=== PATIENT | male | born 1985 | race Caucasian/White ===

== ENCOUNTER 2017-02-19 11:39 | Emergency (ER) | payer SELFPAY ==
[~2017-02-19] VITALS: Ht 188 cm; Wt 80.0 kg
[2017-02-19 11:46] VITALS: BP 149/95; PULSE 109; RESP 24; TEMP 98.4; O2SAT 96
[2017-02-19] MEDS ORDERED: SODIUM CHLOR 0.9% 1000 ML INJ 1,000 ML IV ONE (11:54)
[2017-02-19] MEDS ORDERED: SODIUM CHLORIDE 0.9% FLUSH 10 ML FLUSH IVF PRN (12:00)
[2017-02-19] MEDS ORDERED: LORazepam 2 MG/ML VIAL IVS ONE (12:00)
[2017-02-19 12:18] VITALS: RESP 21; O2SAT 96
[2017-02-19 12:32] LABS: AUTOMATED NEUTROPHIL # 3.7 TH/MM3 (1.8-7.7); BASOPHIL # 0.1 TH/MM3 (0-0.2); BASOPHIL % 1.2 % (0.0-2.0); EOSINOPHIL # 0.1 TH/MM3 (0-0.4); EOSINOPHIL % 1.8 % (0.0-4.0); HEMATOCRIT 41.9 % (39.0-51.0); HEMO FLAGS DIFF FINAL; LYMPH % 23.8 % (9.0-44.0); LYMPHOCYTE # 1.4 TH/MM3 (1.0-4.8); MEAN CELL VOLUME 95.2 FL (80.0-100.0); MEAN CORPUSCULAR HEMOGLOBIN 32.3 PG (27.0-34.0); MEAN CORPUSCULAR HGB CONC 33.9 % (32.0-36.0); NEUT % 64.2 % (16.0-70.0); PLATELET COUNT 150 TH/MM3 (150-450); RED CELL DISTRIBUTION WIDTH 13.7 % (11.6-17.2); WHITE BLOOD COUNT 5.8 TH/MM3 (4.0-11.0)
[2017-02-19 12:46] LABS: ALKALINE PHOSPHATASE 60 U/L (45-117); TOTAL BILIRUBIN ADULT 0.7 MG/DL (0.2-1.0)
[2017-02-19] MEDS ORDERED: chlordiazePOXIDE 25 MG CAP PO STA (12:47)
[2017-02-19 12:48] LABS: ALT (GPT) 174 U/L (12-78); ANION GAP 15 MEQ/L (5-15); AST (GOT) 270 U/L (15-37); BLOOD UREA NITROGEN 5 MG/DL (7-18); CHLORIDE 101 MEQ/L (98-107); GLOMERULAR FILTRATION RATE 84 ML/MIN (>89); POTASSIUM 3.8 MEQ/L (3.5-5.1); SODIUM (NA) 137 MEQ/L (136-145)
[2017-02-19] MEDS ORDERED: CHLO25CA2 PO (12:56)
--- NOTE | 2017-02-19 12:56 | PD ---
HPI Chief Complaint: Seizure Time Seen by Provider: 11:46 Travel History International Travel<30 days: No Contact w/Intl Traveler<30days: No Traveled to known affect area: No History of Present Illness HPI Is a 31-year-old man who presents to the emergency department complaining of episode of seizure today. He said 2 previous seizures before. He said daily alcohol drinker. States she's been cut back over the past couple weeks. Last drank this morning. Bystanders describe generalized tonic-clonic seizures. EMS describes that he was postictal on scene initially. Denies any other recent illness or injury. No other complaints. History Past Medical History Narrative Medical Daily alcohol use Seizures Social History Alcohol Use: Yes (10-12 BEERS DAILY ) Tobacco Use: No Allergies-Medications (Allergen,Severity, Reaction): Coded Allergies: No Known Allergies (Unverified , 02/19/17) Reported Meds & Prescriptions Reported Meds & Active Scripts Active No Active Prescriptions or Reported Medications Review of Systems Except as stated in HPI: all other systems reviewed are Neg Physical Exam Narrative GENERAL: 31-year-old man, little bit tremulous, nontoxic appearing. SKIN: Focused skin assessment warm/dry. HEAD: Atraumatic. Normocephalic. CARDIOVASCULAR: Heart rates over rapid. No murmurs. RESPIRATORY: No accessory muscle use. Clear to auscultation. Breath sounds equal bilaterally. GASTROINTESTINAL: Abdomen soft, non-tender, nondistended. Hepatic and splenic margins not palpable. MUSCULOSKELETAL: No obvious deformities. No clubbing. No cyanosis. No edema. NEUROLOGICAL: Awake and alert. No obvious cranial nerve deficits. Motor grossly within normal limits. Normal speech. PSYCHIATRIC: Appropriate mood and affect; insight and judgment normal. Data Data Last Documented VS Vital Signs Date Time Temp Pulse Resp B/P Pulse Ox O2 Delivery O2 Flow Rate FiO2 02/19/17 12:18 21 96 Room Air 02/19/17 11:46 98.4 109 149/95 Orders Complete Blood Count With Diff (02/19/17 11:54) Alcohol (Ethanol) (02/19/17 11:54) Blood Glucose (02/19/17 11:54) Ecg Monitoring (02/19/17 11:54) Iv Access Insert/Monitor (02/19/17 11:54) Oximetry (02/19/17 11:54) Comprehensive Metabolic Panel (02/19/17 11:54) Sodium Chlor 0.9% 1000 Ml Inj (Ns 1000 M (02/19/17 11:54) Sodium Chloride 0.9% Flush (Ns Flush) (02/19/17 12:00) Lorazepam Inj (Ativan Inj) (02/19/17 12:00) Chlordiazepoxide (Librium) (02/19/17 12:47) Labs Laboratory Tests Test 02/19/17 11:50 White Blood Count 5.8 TH/MM3 Red Blood Count 4.40 MIL/MM3 Hemoglobin 14.2 GM/DL Hematocrit 41.9 % Mean Corpuscular Volume 95.2 FL Mean Corpuscular Hemoglobin 32.3 PG Mean Corpuscular Hemoglobin 33.9 % Concent Red Cell Distribution Width 13.7 % Platelet Count 150 TH/MM3 Mean Platelet Volume 8.8 FL Neutrophils (%) (Auto) 64.2 % Lymphocytes (%) (Auto) 23.8 % Monocytes (%) (Auto) 9.0 % Eosinophils (%) (Auto) 1.8 % Basophils (%) (Auto) 1.2 % Neutrophils # (Auto) 3.7 TH/MM3 Lymphocytes # (Auto) 1.4 TH/MM3 Monocytes # (Auto) 0.5 TH/MM3 Eosinophils # (Auto) 0.1 TH/MM3 Basophils # (Auto) 0.1 TH/MM3 CBC Comment DIFF FINAL Differential Comment Sodium Level 137 MEQ/L Potassium Level 3.8 MEQ/L Chloride Level 101 MEQ/L Carbon Dioxide Level 21.0 MEQ/L Anion Gap 15 MEQ/L Blood Urea Nitrogen 5 MG/DL Creatinine 1.03 MG/DL Estimat Glomerular Filtration 84 ML/MIN Rate Random Glucose 214 MG/DL Calcium Level 8.6 MG/DL Total Bilirubin 0.7 MG/DL Aspartate Amino Transf 270 U/L (AST/SGOT) Alanine Aminotransferase 174 U/L (ALT/SGPT) Alkaline Phosphatase 60 U/L Total Protein 7.9 GM/DL Albumin 4.4 GM/DL Ethyl Alcohol Level 18 MG/DL [facility] Medical Decision Making Medical Screen Exam Complete: Yes Emergency Medical Condition: Yes Interpretation(s) LABS: CBC unremarkable. CMP is unremarkable. AST and ALT are little bit elevated. Alcohol 18 Differential Diagnosis Seizure, electrolyte abnormality, alcohol withdrawal, other Narrative Course Medical decision making 31-year-old man presents to the emergency department complaining of what appears to be an alcohol withdrawal seizure. History of the same. He's had imaging of his head for the past year that been normal. His mom is here with them. I asked him specifically about desire to quit, he does not desire to quit drinking at this time. We'll recommend Librium here for withdrawal prevention, outpatient follow-up if he desires to quit drinking. Diagnosis Primary Impression: Alcohol abuse Additional Impressions: Seizure Alcohol withdrawal Qualified Code: F10.230 - Alcohol withdrawal, uncomplicated Additional Instructions: Take Librium as prescribed as needed for withdrawal symptoms. Do not drink alcohol when taking Librium. Return to the emergency department for any recurrent seizures, or worsening withdrawal symptoms. Med/Other Pt SpecificInfo: Prescription(s) given Scripts Chlordiazepoxide 25 Mg Cap25 Mg PO TID PRN (WITHDRAWAL) #6 CAP Ref 0 Prov:Michael Escobedo MD 02/19/17 Disposition: 01 DISCHARGE HOME Condition: Stable Michael Escobedo MD February 19, 2017 12:56
[2017-02-19 13:00] VITALS: BP 166/107; PULSE 98; RESP 22; O2SAT 99
== END 2017-02-19 13:56 | disposition home or self-care (01) ==
LOC: NEPE 11:39
DX: R56.9 Unspecified convulsions (principal); F10.230 Alcohol dependence with withdrawal, uncomplicated
CPT/HCPCS: 80053; 80307; 85025; 96361; 96374; 99284; J2060; J7030

== ENCOUNTER 2017-06-04 11:15 | Emergency (ER) | payer SELFPAY ==
[~2017-06-04] VITALS: Ht 188 cm; Wt 77.3 kg
[~2017-06-04 11:15] MED LIST: CHLO25CA2 PO
[2017-06-04 11:19] VITALS: BP 164/94; PULSE 122; RESP 18; TEMP 98.9; O2SAT 98
[2017-06-04] MEDS ORDERED: [UNRECOGNIZED DRUG - OTHER] (11:19)
[2017-06-04] MEDS ORDERED: MULTTAB4 (11:19)
[2017-06-04] MEDS ORDERED: SODIUM CHLOR 0.9% 1000 ML INJ 1,000 ML IV ONE ×2 (11:41→12:45)
[2017-06-04] MEDS ORDERED: THIAMINE INJ 100 MG in SODIUM CHLORIDE 0.9% INJ 100 ML IV ONE (11:45)
[2017-06-04] MEDS ORDERED: LORazepam 2 MG/ML VIAL IVS ONE (11:45)
[2017-06-04] MEDS ORDERED: SODIUM CHLORIDE 0.9% FLUSH 10 ML FLUSH IVF PRN (11:45)
--- NOTE | 2017-06-04 11:48 | PD ---
HPI Chief Complaint: Seizure Time Seen by Provider: 11:35 Travel History International Travel<30 days: No Contact w/Intl Traveler<30days: No Traveled to known affect area: No History of Present Illness HPI Patient is a 31-year-old male who arrives emergency room after he was found on the floor by his mother after having a possible seizure episode. As per patient , he has history of alcohol withdrawal seizures, reports that he is an alcoholic and drinks about 4-5 shots of "very strong" alcohol per day. Patient reports that he remembers drinking 2 shots of "99" this morning and then woke up on the floor with his mom at his side. Patient reports that he feels a little "shaky" at this time from withdrawal symptoms, denies any headache or dizziness, denies any abdominal pain, denies any nausea or vomiting, denies chest pain or shortness of breath. Patient denies suicidal or homicidal ideations. PFSH Past Medical History Anxiety: Yes Depression: Yes High Cholesterol: Yes Diminished Hearing: No Hepatitis: Yes (HEP A) Hypertension: Yes (DOES NOT TAKE MEDS) Musculoskeletal: No Neurologic: No Immunizations Current: Yes Seizures: Yes (DOES NOT TAKE MEDS) Influenza Vaccination: No ?: Not Social History Alcohol Use: Yes (4-5 shots/day) Tobacco Use: No Substance Use: No Allergies-Medications (Allergen,Severity, Reaction): Coded Allergies: No Known Allergies (Unverified , 02/19/17) Reported Meds & Prescriptions Reported Meds & Active Scripts Active Chlordiazepoxide HCl 25 Mg Capsule 25 Mg PO TID PRN Reported Multi Vitamin Mens (Multiple Vitamin) 1 Tab Tab [potassium vit] Review of Systems General / Constitutional: No: Fever Eyes: No: Visual changes HENT: No: Headaches Cardiovascular: No: Chest Pain or Discomfort Respiratory: No: Shortness of Breath Gastrointestinal: No: Abdominal Pain Genitourinary: No: Dysuria Musculoskeletal: No: Pain Skin: No Rash Neurologic: Positive: Seizures, No: Weakness Psychiatric: Positive: Substance Abuse (alcohol abuse), No: Depression Endocrine: No: Polydipsia Hematologic/Lymphatic: No: Easy Bruising Physical Exam Narrative GENERAL: mild distress, patient tremulous on exam SKIN: Focused skin assessment warm/dry. HEAD: Atraumatic. Normocephalic. EYES: Pupils equal and round. No scleral icterus. No injection or drainage. ENT: No nasal bleeding or discharge. Mucous membranes pink and moist. NECK: Trachea midline. No JVD. CARDIOVASCULAR: Tachycardic. No murmur appreciated. RESPIRATORY: No accessory muscle use. Clear to auscultation. Breath sounds equal bilaterally. GASTROINTESTINAL: Abdomen soft, non-tender, nondistended. Hepatic and splenic margins not palpable. MUSCULOSKELETAL: No obvious deformities. No clubbing. No cyanosis. No edema. NEUROLOGICAL: Awake and alert. No obvious cranial nerve deficits. Motor grossly within normal limits. Normal speech. PSYCHIATRIC: Appropriate mood and affect; insight and judgment normal. Data Data Last Documented VS Vital Signs Date Time Temp Pulse Resp B/P Pulse Ox O2 Delivery O2 Flow Rate FiO2 06/04/17 14:58 110 18 152/104 98 06/04/17 11:19 98.9 Orders Complete Blood Count With Diff (06/04/17 11:41) Alcohol (Ethanol) (06/04/17 11:41) Electrocardiogram (06/04/17 ) Ct Brain W/O Iv Contrast(Rout) (06/04/17 ) Ecg Monitoring (06/04/17 11:41) Iv Access Insert/Monitor (06/04/17 11:41) Oximetry (06/04/17 11:41) Comprehensive Metabolic Panel (06/04/17 11:41) Sodium Chlor 0.9% 1000 Ml Inj (Ns 1000 M (06/04/17 11:41) Sodium Chloride 0.9% Flush (Ns Flush) (06/04/17 11:45) Lorazepam Inj (Ativan Inj) (06/04/17 11:45) Thiamine Inj (Thiamine Inj) (06/04/17 11:45) Ua Includes Microscopic (06/04/17 11:41) Chest, Single Ap (06/04/17 11:45) Potassium Chloride (Kcl) (06/04/17 12:45) Us Abdomen Gallbladder (06/04/17 ) Sodium Chlor 0.9% 1000 Ml Inj (Ns 1000 M (06/04/17 12:45) Lorazepam Inj (Ativan Inj) (06/04/17 13:30) Chlordiazepoxide (Librium) (06/04/17 15:30) Labs Laboratory Tests Test 06/04/17 11:50 White Blood Count 5.4 TH/MM3 Red Blood Count 3.53 MIL/MM3 Hemoglobin 11.6 GM/DL Hematocrit 33.7 % Mean Corpuscular Volume 95.6 FL Mean Corpuscular Hemoglobin 32.9 PG Mean Corpuscular Hemoglobin 34.4 % Concent Red Cell Distribution Width 15.7 % Platelet Count 172 TH/MM3 Mean Platelet Volume 8.6 FL Neutrophils (%) (Auto) 89.1 % Lymphocytes (%) (Auto) 5.3 % Monocytes (%) (Auto) 5.3 % Eosinophils (%) (Auto) 0.1 % Basophils (%) (Auto) 0.2 % Neutrophils # (Auto) 4.8 TH/MM3 Lymphocytes # (Auto) 0.3 TH/MM3 Monocytes # (Auto) 0.3 TH/MM3 Eosinophils # (Auto) 0.0 TH/MM3 Basophils # (Auto) 0.0 TH/MM3 CBC Comment DIFF FINAL Differential Comment Urine Collection Type CLEAN CATCH Urine Color JOSH Urine Turbidity CLEAR Urine pH 6.5 Urine Specific [place] 1.020 Urine Protein 30 mg/dL Urine Glucose (UA) 100 mg/dL Urine Ketones 15 mg/dL Urine Occult Blood TRACE Urine Nitrite POS Urine Bilirubin MOD Urine Leukocyte Esterase NEG Urine RBC 4-9 /hpf Urine WBC 0-2 /hpf Urine Squamous Epithelial 6-8 /hpf Cells Urine Hyaline Casts 20-24 /lpf Urine Collection Time 11:50 Sodium Level 134 MEQ/L Potassium Level 3.0 MEQ/L Chloride Level 96 MEQ/L Carbon Dioxide Level 22.5 MEQ/L Anion Gap 16 MEQ/L Blood Urea Nitrogen 6 MG/DL Creatinine 1.20 MG/DL Estimat Glomerular Filtration 70 ML/MIN Rate Random Glucose 241 MG/DL Calcium Level 8.4 MG/DL Total Bilirubin 3.2 MG/DL Aspartate Amino Transf 360 U/L (AST/SGOT) Alanine Aminotransferase 195 U/L (ALT/SGPT) Alkaline Phosphatase 246 U/L Total Protein 7.4 GM/DL Albumin 3.6 GM/DL Ethyl Alcohol Level LESS THAN 3 MG/DL MDM Medical Decision Making Medical Screen Exam Complete: Yes Emergency Medical Condition: Yes Interpretation(s) EKG at 1209: Sinus tachycardia at 116bpm, qt/qtc: 353/422, non specific st and t wave changes Vital Signs Date Time Temp Pulse Resp B/P Pulse Ox O2 Delivery O2 Flow Rate FiO2 06/04/17 11:19 98.9 122 18 164/94 98 Differential Diagnosis Differential includes alcohol abuse, alcohol withdrawal seizures, electrolyte abnormality, intracranial hemorrhage, dehydration Narrative Course Patient is a 31-year-old male who presents to emergency room with complaints of alcohol withdrawal seizures. Patient was found on the floor in his bedroom by his mother this morning, Reports that he may have had a seizure this morning. Patient does admit to drinking 2 shots of alcohol this morning, reports that he think he is in withdrawal this time. Patient is tachycardic on exam, he is tremulous, patient with most likely alcohol withdrawal symptoms. Plan to obtain CT of the head as he did fall supposedly out of his bed this morning - will rule out intracranial hemorrhage. Will obtain lab work including alcohol level. Will give IVF and ativan for withdrawal symptoms. Seizure precautions initiated, will monitor on cloth tester quality. Vital Signs Date Time Temp Pulse Resp B/P Pulse Ox O2 Delivery O2 Flow Rate FiO2 06/04/17 12:17 112 16 160/91 100 06/04/17 12:17 100 06/04/17 11:19 98.9 122 18 164/94 98 Laboratory Tests Test 06/04/17 11:50 White Blood Count 5.4 TH/MM3 (4.0-11.0) Red Blood Count 3.53 MIL/MM3 (4.50-5.90) Hemoglobin 11.6 GM/DL (13.0-17.0) Hematocrit 33.7 % (39.0-51.0) Mean Corpuscular Volume 95.6 FL (80.0-100.0) Mean Corpuscular Hemoglobin 32.9 PG (27.0-34.0) Mean Corpuscular Hemoglobin 34.4 % Concent (32.0-36.0) Red Cell Distribution Width 15.7 % (11.6-17.2) Platelet Count 172 TH/MM3 (150-450) Mean Platelet Volume 8.6 FL (7.0-11.0) Neutrophils (%) (Auto) 89.1 % (16.0-70.0) Lymphocytes (%) (Auto) 5.3 % (9.0-44.0) Monocytes (%) (Auto) 5.3 % (0.0-8.0) Eosinophils (%) (Auto) 0.1 % (0.0-4.0) Basophils (%) (Auto) 0.2 % (0.0-2.0) Neutrophils # (Auto) 4.8 TH/MM3 (1.8-7.7) Lymphocytes # (Auto) 0.3 TH/MM3 (1.0-4.8) Monocytes # (Auto) 0.3 TH/MM3 (0-0.9) Eosinophils # (Auto) 0.0 TH/MM3 (0-0.4) Basophils # (Auto) 0.0 TH/MM3 (0-0.2) CBC Comment DIFF FINAL Differential Comment Urine Collection Type CLEAN CATCH Urine Color JOSH (YELLW/STRAW) Urine Turbidity CLEAR (CLEAR) Urine pH 6.5 (5.0-8.5) Urine Specific [place] 1.020 (1.002-1.035) Urine Protein 30 mg/dL (NEG-TRACE) Urine Glucose (UA) 100 mg/dL (NEG) Urine Ketones 15 mg/dL (NEG) Urine Occult Blood TRACE (NEG) Urine Nitrite POS (NEG) Urine Bilirubin MOD (NEG) Urine Leukocyte Esterase NEG (NEG) Urine RBC 4-9 /hpf (0-3) Urine WBC 0-2 /hpf (0-5) Urine Squamous Epithelial 6-8 /hpf (0-5) Cells Urine Hyaline Casts 20-24 /lpf (RARE) Urine Collection Time 11:50 Sodium Level 134 MEQ/L (136-145) Potassium Level 3.0 MEQ/L (3.5-5.1) Chloride Level 96 MEQ/L (98-107) Carbon Dioxide Level 22.5 MEQ/L (21.0-32.0) Anion Gap 16 MEQ/L (5-15) Blood Urea Nitrogen 6 MG/DL (7-18) Creatinine 1.20 MG/DL (0.60-1.30) Estimat Glomerular Filtration 70 ML/MIN (>89) Rate Random Glucose 241 MG/DL (74-106) Calcium Level 8.4 MG/DL (8.5-10.1) Total Bilirubin 3.2 MG/DL (0.2-1.0) Aspartate Amino Transf 360 U/L (15-37) (AST/SGOT) Alanine Aminotransferase 195 U/L (12-78) (ALT/SGPT) Alkaline Phosphatase 246 U/L (45-117) Total Protein 7.4 GM/DL (6.4-8.2) Albumin 3.6 GM/DL (3.4-5.0) Ethyl Alcohol Level LESS THAN 3 MG/DL (0-5) Patient with transaminitis (AST 360, ALT: 195), baseline AST: 270 ALT: 174, moderate bili in urine tbili elevated at 3.2 - baseline around 1.1, will order RUQ US Last Impressions Chest X-Ray 06/04/17 1145 Signed Impressions: Service Date/Time: Sunday, June 04, 2017 12:05 - CONCLUSION: No acute disease. Cory James MD Head CT 06/04/17 0000 Signed Impressions: Service Date/Time: Sunday, June 04, 2017 11:55 - CONCLUSION: 1. No acute intracranial abnormality is identified. Marc Tanner MD RUQ: sludge in gallbladder with no gallbladder wall thickening or pericholecystic fluid seen Patient with no absolutely no abdominal pain at this time or during his ER visit , abdomen is soft, nontender, nondistended, no peritoneal signs. Patient understands importance of alcohol cessation as he will end up with liver failure. Patient was given a copy of his lab work as well as ultrasound report. Understands needs to follow-up with radiation protection technician and bring his studies with him to his appointment. Patient will return to emergency was needed. Studies also reviewed with patients mother who is at bedside. Diagnosis Primary Impression: Alcohol withdrawal Qualified Code: F10.230 - Alcohol withdrawal syndrome without complication Additional Impressions: Fall Qualified Code: W19.XXXA - Fall, initial encounter Seizure Alcohol abuse EtOH dependence Qualified Code: F10.239 - Alcohol dependence with withdrawal with complication Transaminitis Hypokalemia Referrals: Pretty Danielson MD Patient Instructions: General Instructions Additional Instructions: Please provide patient with a copy of his lab work and studies at discharge Please drink alcohol responsibility Please follow-up with your primary care doctor Return to emergency room as worsen or progress Return to the emergency room as needed Please follow up with radiation protection technician as outpatient as soon as possible, please bring the copy of your lab work and ultrasound to your appointment Scripts Chlordiazepoxide HCl 25 Mg [id number] Mg PO TID PRN (WITHDRAWAL) #6 Prov:Anitha Ball DO 06/04/17 Disposition: 01 DISCHARGE HOME Condition: Stable Anitha Ball DO Jun 04, 2017 11:47
[2017-06-04 12:01] LABS: AUTOMATED NEUTROPHIL # 4.8 TH/MM3 (1.8-7.7); BASOPHIL % 0.2 % (0.0-2.0); EOSINOPHIL % 0.1 % (0.0-4.0); HEMATOCRIT 33.7 % (39.0-51.0); HEMO FLAGS DIFF FINAL; LYMPH % 5.3 % (9.0-44.0); LYMPHOCYTE # 0.3 TH/MM3 (1.0-4.8); MEAN CELL VOLUME 95.6 FL (80.0-100.0); MEAN CORPUSCULAR HEMOGLOBIN 32.9 PG (27.0-34.0); MEAN CORPUSCULAR HGB CONC 34.4 % (32.0-36.0); MONO % 5.3 % (0.0-8.0); NEUT % 89.1 % (16.0-70.0); PLATELET COUNT 172 TH/MM3 (150-450); RED BLOOD COUNT 3.53 MIL/MM3 (4.50-5.90); RED CELL DISTRIBUTION WIDTH 15.7 % (11.6-17.2); WHITE BLOOD COUNT 5.4 TH/MM3 (4.0-11.0)
[2017-06-04 12:05] LABS: BLOOD, URINE TRACE (NEG); GLUCOSE,URINE 100 mg/dL (NEG); KETONE, URINE 15 mg/dL (NEG); PH, URINE 6.5 (5.0-8.5)
[2017-06-04 12:14] LABS: METHOD OF COLLECTION CLEAN CATCH; NITRITE,URINE POS (NEG)
[2017-06-04 12:15] LABS: URINE COLOR AMBER (YELLW/STRAW)
[2017-06-04] MEDS ORDERED: CHLO25CA9 PO (12:15)
[2017-06-04 12:16] LABS: WBC, URINE 0-2 /hpf (0-5)
[2017-06-04 12:17] VITALS: BP 160/91; PULSE 112; RESP 16; O2SAT 100
[2017-06-04 12:21] LABS: CHLORIDE 96 MEQ/L (98-107); SODIUM (NA) 134 MEQ/L (136-145)
[2017-06-04 12:24] LABS: ANION GAP 16 MEQ/L (5-15); BICARBONATE 22.5 MEQ/L (21.0-32.0)
[2017-06-04 12:25] LABS: BLOOD UREA NITROGEN 6 MG/DL (7-18)
[2017-06-04 12:27] LABS: ALT (GPT) 195 U/L (12-78); AST (GOT) 360 U/L (15-37)
[2017-06-04 12:28] LABS: GLOMERULAR FILTRATION RATE 70 ML/MIN (>89)
[2017-06-04 12:29] LABS: ALCOHOL LESS THAN 3 MG/DL (0-5); TOTAL BILIRUBIN ADULT 3.2 MG/DL (0.2-1.0)
[2017-06-04 12:30] LABS: ALKALINE PHOSPHATASE 246 U/L (45-117)
[2017-06-04] MEDS ORDERED: POTASSIUM CHLORIDE 10 MEQ CONTROLLED RELEASE TAB PO ONE (12:45)
[2017-06-04] MEDS ORDERED: LORazepam 2 MG/ML VIAL IV PUSH ONE (13:30)
--- NOTE | 2017-06-04 13:53 | RADRPT ---
EXAM DATE/TIME: 06/04/2017 11:55 [facility] COMPARISON: CT BRAIN W/O CONTRAST, September 01, 2016, 0:46. INDICATIONS : Seizure. RADIATION DOSE: 61.70 CTDIvol (mGy) MEDICAL HISTORY : Seizures. Hypertension. SURGICAL HISTORY : None. ENCOUNTER: Initial ACUITY: 1 day PAIN SCALE: 0/10 LOCATION: cranial TECHNIQUE: Multiple contiguous axial images were obtained of the head. Using automated exposure control and adj ustment of the mA and/or kV according to patient size, radiation dose was kept as low as reasonably a chievable to obtain optimal diagnostic quality images. DICOM format image data is available electro nically for review and comparison. FINDINGS: CEREBRUM: The ventricles are normal for age. No evidence of midline shift, mass lesion, hemorrhage or acute in farction. No extra-axial fluid collections are seen. POSTERIOR FOSSA: The cerebellum and brainstem are intact. The 4th ventricle is midline. The cerebellopontine angle i s unremarkable. EXTRACRANIAL: The visualized portion of the orbits is intact. SKULL: The calvaria is intact. No evidence of skull fracture. CONCLUSION: 1. No acute intracranial abnormality is identified. Marc Tanner MD on June 04, 2017 at 13:48 Board Certified Radiologist. This report was verified electronically.
--- NOTE | 2017-06-04 13:59 | RADRPT ---
EXAM DATE/TIME: 06/04/2017 12:05 [facility] COMPARISON: CHEST SINGLE AP, May 21, 2014, 9:40. INDICATIONS : Post possible seizure. Syncopal episode. MEDICAL HISTORY : Hypercholesterolemia. Hepatitis A. Hypertension. Seizures. SURGICAL HISTORY : None. ENCOUNTER: Initial ACUITY: 1 day PAIN SCORE: 0/10 LOCATION: chest FINDINGS: A single view of the chest demonstrates the lungs to be symmetrically aerated without evidence of mas s, infiltrate or effusion. The cardiomediastinal contours are unremarkable. Osseous structures are intact. CONCLUSION: No acute disease. Cory James MD on June 04, 2017 at 13:57 Board Certified Radiologist. This report was verified electronically.
[2017-06-04 14:58] VITALS: BP 152/104; PULSE 110; RESP 18; O2SAT 98
--- NOTE | 2017-06-04 15:06 | RADRPT ---
EXAM DATE/TIME: 06/04/2017 13:57 [facility] COMPARISON: US ABDOMEN - LIVER, May 21, 2014, 15:41. INDICATIONS : Right upper quadrant pain. MEDICAL HISTORY : Hypercholesterolemia. Hypertension. ETOH abuse. Seizures. Depression. Anxiety. Hepatitis A. SURGICAL HISTORY : None. ENCOUNTER: Initial ACUITY: 1 day PAIN SCORE: 4/10 LOCATION: Right upper quadrant MEASUREMENTS: LIVER: 22.4 cm length COMMON DUCT: 3 mm RIGHT KIDNEY: 12.3 x 5.4 x 4.9 cm FINDINGS: LIVER: The liver appears enlarged. There is increased echotexture consistent with diffuse fatty infiltration . COMMON DUCT: No intraluminal mass or stone visualized. GALLBLADDER: No stones are seen. There is sludge layering diffusely along the dependent portion of the gallbladder . No gallbladder wall thickening or pericholecystic fluid is seen. PANCREAS: The visualized portions are within normal limits. RIGHT KIDNEY: No evidence of hydronephrosis, stone, or mass. CONCLUSION: 1. Fatty infiltration of the liver. The liver appears mildly enlarged. 2. There is sludge layering in the dependent portion of the gallbladder. Marc Tanner MD on June 04, 2017 at 15:03 Board Certified Radiologist. This report was verified electronically.
[2017-06-04] MEDS ORDERED: chlordiazePOXIDE 25 MG CAP PO ONE (15:30)
--- NOTE | 2017-06-06 09:06 | EKG ---
Date Performed: 06/04/2017 Time Performed: 12:09:11 PTAGE: 31 years EKG: SINUS TACHYCARDIA NONSPECIFIC ST & T-WAVE ABNORMALITY ABNORMAL RHYTHM ECG PREVIOUS TRACING : 05/21/2014 09.45 Compared to prior tracing no significant change DOCTOR: Tarun Latham Interpretating Date/Time 06/06/2017 09:00:01
== END 2017-06-04 15:43 | disposition home or self-care (01) ==
LOC: PHED 11:15
DX: F10.239 Alcohol dependence with withdrawal, unspecified (principal); R56.9 Unspecified convulsions; R74.0 Nonspecific elevation of levels of transaminase and lactic acid dehydrogenase [LDH]; E87.6 Hypokalemia; R00.0 Tachycardia, unspecified; R10.11 Right upper quadrant pain; I10 Essential (primary) hypertension; B15.9 Hepatitis A without hepatic coma
CPT/HCPCS: 70450; 71010; 76705; 80053; 80307; 81001; 85025; 93005; 96365; 96375; 96376; 99285; J2060; J3411; J7030

== ENCOUNTER 2017-07-05 17:24 | Inpatient (IN) | payer SELFPAY ==
[~2017-07-05] VITALS: Ht 188 cm; Wt 80.0 kg
[~2017-07-05 17:24] MED LIST changes: -CHLO25CA2 PO; +CHLO25CA9 PO; +MULTTAB4; +[UNRECOGNIZED DRUG - OTHER]
[2017-07-05 17:25] VITALS: BP 119/74; PULSE 122; RESP 20; TEMP 98.5; O2SAT 100
--- NOTE | 2017-07-05 20:18 | PD ---
HPI Chief Complaint: Abnormal Results Time Seen by Provider: 20:12 Travel History International Travel<30 days: No Contact w/Intl Traveler<30days: No Traveled to known affect area: No History of Present Illness HPI 31-year-old male with history of alcoholism presents to emergency department for evaluation from [facility]. Patient states he's been drinking alcohol since he was 17 years old. He drinks approximately 4 small bottles of liquor a day and his last drink was about 4 days ago. He has been at [facility] but was sent here because he developed jaundice. He denies any history of liver disease. No abdominal pain, nausea, or vomiting. Patient denies any IV drug use. He has no other symptoms to report. [facility] Past Medical History Anxiety: Yes Depression: Yes High Cholesterol: Yes Diminished Hearing: No Hepatitis: Yes (HEP A) Hypertension: Yes (DOES NOT TAKE MEDS) Musculoskeletal: No Neurologic: No Immunizations Current: Yes Seizures: Yes (DOES NOT TAKE MEDS) Social History Alcohol Use: Yes (4-5 shots/day) Tobacco Use: No Substance Use: No Allergies-Medications (Allergen,Severity, Reaction): Coded Allergies: No Known Allergies (Unverified , 02/19/17) Reported Meds & Prescriptions Reported Meds & Active Scripts Active Chlordiazepoxide HCl 25 Mg Capsule 25 Mg PO TID PRN Reported Multi Vitamin Mens (Multiple Vitamin) 1 Tab Tab [potassium vit] Review of Systems Except as stated in HPI: all other systems reviewed are Neg Physical Exam Narrative GENERAL: Well-nourished male patient, in no acute distress SKIN: Focused skin assessment warm/dry. Jaundice HEAD: Atraumatic. Normocephalic. EYES: Pupils equal and round. Bilateral scleral icterus. No injection or drainage. ENT: No nasal bleeding or discharge. Mucous membranes pink and moist. NECK: Trachea midline. No JVD. CARDIOVASCULAR: Tachycardic rate and rhythm. No murmur appreciated. RESPIRATORY: No accessory muscle use. Clear to auscultation. Breath sounds equal bilaterally. GASTROINTESTINAL: Abdomen soft, non-tender, nondistended. Hepatic and splenic margins not palpable. MUSCULOSKELETAL: No obvious deformities. No clubbing. No cyanosis. No edema. NEUROLOGICAL: Awake and alert. No obvious cranial nerve deficits. Motor grossly within normal limits. Normal speech. PSYCHIATRIC: Appropriate mood and affect; insight and judgment normal. Data Data Last Documented VS Vital Signs Date Time Temp Pulse Resp B/P (MAP) Pulse Ox O2 Delivery O2 Flow Rate FiO2 07/05/17 17:25 98.5 122 20 119/74 (89) 100 Orders Orders Lipase (07/05/17 20:16) Prothrombin Time / Inr (Pt) (07/05/17 20:16) Act Partial Throm Time (Ptt) (07/05/17 20:16) Urinalysis - C+S If Indicated (07/05/17 20:16) Iv Access Insert/Monitor (07/05/17 20:16) Ecg Monitoring (07/05/17 20:16) Oximetry (07/05/17 20:16) Sodium Chloride 0.9% Flush (Ns Flush) (07/05/17 20:30) Ammonia (07/05/17 20:16) Hepatic Functional Panel (07/05/17 20:16) Hepatitis Profile (07/05/17 20:16) Basic Metabolic Panel (Bmp) (07/05/17 20:16) Complete Blood Count With Diff (07/05/17 20:27) Alcohol (Ethanol) (07/05/17 21:36) Admit Order (Ed Use Only) (07/05/17 21:44) Labs Laboratory Tests Test 07/05/17 20:25 White Blood Count 6.0 TH/MM3 Red Blood Count 3.49 MIL/MM3 Hemoglobin 12.2 GM/DL Hematocrit 36.0 % Mean Corpuscular Volume 103.2 FL Mean Corpuscular Hemoglobin 34.9 PG Mean Corpuscular Hemoglobin Concent 33.8 % Red Cell Distribution Width 17.6 % Platelet Count 254 TH/MM3 Mean Platelet Volume 10.0 FL CBC Comment AUTO DIFF Prothrombin Time 12.8 SEC Prothromb Time International Ratio 1.2 RATIO Activated Partial Thromboplast Time 30.2 SEC Blood Urea Nitrogen 4 MG/DL Creatinine 1.03 MG/DL Random Glucose 139 MG/DL Total Protein 6.6 GM/DL Albumin 3.1 GM/DL Calcium Level 9.8 MG/DL Alkaline Phosphatase 458 U/L Aspartate Amino Transf (AST/SGOT) 165 U/L Alanine Aminotransferase (ALT/SGPT) 93 U/L Total Bilirubin 17.5 MG/DL Direct Bilirubin 14.5 MG/DL Sodium Level 135 MEQ/L Potassium Level 3.2 MEQ/L Chloride Level 95 MEQ/L Carbon Dioxide Level 31.6 MEQ/L Anion Gap 8 MEQ/L Estimat Glomerular Filtration Rate 84 ML/MIN Indirect Bilirubin 3.0 MG/DL Ammonia 84 MCMOL/L Lipase 961 U/L [facility] Medical Decision Making Medical Screen Exam Complete: Yes Emergency Medical Condition: Yes Medical Record Reviewed: Yes Differential Diagnosis Acute liver failure versus transaminitis versus alcohol dependency versus cirrhosis Narrative Course 31-year-old male with long-standing history of alcoholism presents to emergency department for evaluation of jaundice that developed during his stay at [facility]. Patient's last drink was 4 or 5 days ago. He presents here today tachycardic with bilateral scleral icterus and jaundice appearance. He is without pain. Abdominal exam is benign. Laboratory Tests Test 07/05/17 20:25 White Blood Count 6.0 TH/MM3 Red Blood Count 3.49 MIL/MM3 Hemoglobin 12.2 GM/DL Hematocrit 36.0 % Mean Corpuscular Volume 103.2 FL Mean Corpuscular Hemoglobin 34.9 PG Mean Corpuscular Hemoglobin Concent 33.8 % Red Cell Distribution Width 17.6 % Platelet Count 254 TH/MM3 Mean Platelet Volume 10.0 FL CBC Comment AUTO DIFF Prothrombin Time 12.8 SEC Prothromb Time International Ratio 1.2 RATIO Activated Partial Thromboplast Time 30.2 SEC Blood Urea Nitrogen 4 MG/DL Creatinine 1.03 MG/DL Random Glucose 139 MG/DL Total Protein 6.6 GM/DL Albumin 3.1 GM/DL Calcium Level 9.8 MG/DL Alkaline Phosphatase 458 U/L Aspartate Amino Transf (AST/SGOT) 165 U/L Alanine Aminotransferase (ALT/SGPT) 93 U/L Total Bilirubin 17.5 MG/DL Direct Bilirubin 14.5 MG/DL Sodium Level 135 MEQ/L Potassium Level 3.2 MEQ/L Chloride Level 95 MEQ/L Carbon Dioxide Level 31.6 MEQ/L Anion Gap 8 MEQ/L Estimat Glomerular Filtration Rate 84 ML/MIN Indirect Bilirubin 3.0 MG/DL Ammonia 84 MCMOL/L Lipase 961 U/L Discussed the patient my attending physician. Pt's transaminitis has improved, however, bilirubin levels are quite elevated. Patient will be admitted to [facility] for admission and further evaluation. Diagnosis Primary Impression: Hyperbilirubinemia Additional Impressions: Transaminitis EtOH dependence Qualified Codes: F10.29 - Alcohol dependence with unspecified alcohol-induced disorder Admitting Information Admitting Physician Requests: Observation Condition: Stable Graciela Dominguez Jul 05, 2017 20:18
[2017-07-05] MEDS ORDERED: SODIUM CHLORIDE 0.9% FLUSH 10 ML FLUSH IV FLUSH PRN ×2 (20:30→21:45)
[2017-07-05 21:17] LABS: APTT (PATIENT) 30.2 SEC (24.3-30.1); INTERNATIONAL NORMALIZED RATIO 1.2 RATIO; PROTHROMBIN TIME - PATIENT 12.8 SEC (9.8-11.6)
[2017-07-05 21:22] LABS: BICARBONATE 31.6 MEQ/L (21.0-32.0); POTASSIUM 3.2 MEQ/L (3.5-5.1); TOTAL BILIRUBIN ADULT 17.5 MG/DL (0.2-1.0)
[2017-07-05 21:27] LABS: MEAN CELL VOLUME 103.2 FL (80.0-100.0); MEAN CORPUSCULAR HEMOGLOBIN 34.9 PG (27.0-34.0); MEAN CORPUSCULAR HGB CONC 33.8 % (32.0-36.0); PLATELET COUNT 254 TH/MM3 (150-450); RED BLOOD COUNT 3.49 MIL/MM3 (4.50-5.90); RED CELL DISTRIBUTION WIDTH 17.6 % (11.6-17.2)
[2017-07-05 21:29] LABS: HEMO FLAGS AUTO DIFF
[2017-07-05] MEDS ORDERED: FLUMAZENIL 0.5 MG/5 ML VIAL IV PUSH PRN (21:45)
[2017-07-05] MEDS ORDERED: ONDANSETRON HCL 4 MG/2 ML VIAL IVP PRN (21:45)
[2017-07-05] MEDS ORDERED: HALOPERIDOL LACTATE 5 MG/ML AMP IM PRN (21:45)
[2017-07-05] MEDS ORDERED: LORazepam 1 MG TAB PO PRN (21:45)
[2017-07-05] MEDS ORDERED: BISACODYL 10 MG SUPP RECTAL PRN (21:45)
[2017-07-05] MEDS ORDERED: SENNOSIDES 8.6 MG TAB PO PRN (21:45)
[2017-07-05] MEDS ORDERED: MAGNESIUM HYDROXIDE SUSP 30 ML CUP PO PRN (21:45)
[2017-07-05] MEDS ORDERED: LORazepam 2 MG/ML VIAL IV PUSH PRN ×4 (21:45)
[2017-07-05] MEDS ORDERED: LACTULOSE SYRUP 20 GM/30 ML CUP PO PRN (21:45)
[2017-07-05] MEDS ORDERED: LORazepam 2 MG TAB PO PRN (21:45)
--- NOTE | 2017-07-05 21:49 | HHI.HP ---
[facility] Service [facility] Primary Care Physician No Primary Care Physician Admission Diagnosis Hyperbilirubenemia; transaminitis; alcohol abuse Diagnoses: (1) Alcohol abuse Diagnosis: Principal (2) Jaundice Diagnosis: Principal (3) Elevated LFTs Diagnosis: Principal (4) Hypokalemia Diagnosis: Principal (5) Pancreatitis Diagnosis: Principal Travel History International Travel<30 Days: No Contact w/Intl Traveler <30 Da: No Traveled to Known Affected Are: No History of Present Illness This is a 31-year-old male with a PMH of Anxiety, Depression, Hepatitis, Alcohol Abuse and h/o Alcohol Related Seizure who was sent to the ER by Tony Santillan secondary to jaundice. Pt w/ a h/o extensive alcohol abuse, drinks 4 shots daily, last drink approx 4 days ago. Now w/ jaundice. Denies fever, chills, nausea/vomiting, or diarrhea. On arrival, BP 119/74, HR 122, O2 sat 100 % on RA, Afebrile. CBC essentially unremarkable. K+ 3.2. AST 165, ALT 93, ALP 458, Total Bili 17.5. Ammonia 84. Lipase 961. INR 1.2. U/a negative. Review of Systems Except as stated in HPI: all other systems reviewed are Neg ROS: 14 point review of systems otherwise negative. Past Family Social History Past Medical History PMH: Anxiety, Depression, Hepatitis, Alcohol Abuse and h/o Alcohol Related Seizure Past Surgical History PAST SURGICAL HISTORY: None Allergies: Coded Allergies: No Known Allergies (Unverified , 02/19/17) Family History PAST FAMILY HISTORY: Reviewed. No h/o DM or CAD Social History PAST SOCIAL HISTORY: Positive for alcohol abuse, 4-5 shots/day. Negative for tobacco or drugs. Physical Exam Vital Signs Vital Signs Date Time Temp Pulse Resp B/P (MAP) Pulse Ox O2 Delivery O2 Flow Rate FiO2 07/05/17 17:25 98.5 122 20 119/74 (89) 100 Physical Exam PE: GENERAL: Young male in no acute distress. +jaundice HEENT: PERRLA, EOMI. + scleral icterus. No conjunctival pallor. No lid lag or facial droop. CARDIOVASCULAR: Regular rate and rhythm. No obvious murmurs to auscultation. No chest tenderness to palpation. RESPIRATORY: No obvious rhonchi or wheezing. Clear to auscultation. Breath sounds equal bilaterally. GASTROINTESTINAL: Abdomen soft, non-tender, nondistended. BS normal. MUSCULOSKELETAL: Extremities without clubbing, cyanosis, or edema. No obvious deformities. NEUROLOGICAL: Awake, alert and oriented x4. No focal neurologic deficits. Moving both upper and lower extremities spontaneously. Laboratory Laboratory Tests Test 07/05/17 20:25 White Blood Count 6.0 Red Blood Count 3.49 Hemoglobin 12.2 Hematocrit 36.0 Mean Corpuscular Volume 103.2 Mean Corpuscular Hemoglobin 34.9 Mean Corpuscular Hemoglobin Concent 33.8 Red Cell Distribution Width 17.6 Platelet Count 254 Mean Platelet Volume 10.0 CBC Comment AUTO DIFF Prothrombin Time 12.8 Prothromb Time International Ratio 1.2 Activated Partial Thromboplast Time 30.2 Blood Urea Nitrogen 4 Creatinine 1.03 Random Glucose 139 Total Protein 6.6 Albumin 3.1 Calcium Level 9.8 Alkaline Phosphatase 458 Aspartate Amino Transf (AST/SGOT) 165 Alanine Aminotransferase (ALT/SGPT) 93 Total Bilirubin 17.5 Direct Bilirubin 14.5 Sodium Level 135 Potassium Level 3.2 Chloride Level 95 Carbon Dioxide Level 31.6 Anion Gap 8 Estimat Glomerular Filtration Rate 84 Indirect Bilirubin 3.0 Ammonia 84 Lipase 961 Result Diagram: 07/05/17202407/05/172024 Caprini VTE Risk Assessment Caprini VTE Risk Assessment: No/Low Risk (score <= 1) Caprini Risk Assessment Model Point Value = 1 Point Value = 2 Point Value = 3 Point Value = 5 Age 41-60 Minor surgery BMI > 25 kg/m2 Swollen legs Varicose veins or History of unexplained or recurrent spontaneous Oral contraceptives or hormone replacement Sepsis (< 1 month) Serious lung disease, including pneumonia (< 1 month) Abnormal pulmonary function Acute myocardial infarction Congestive heart failure (< 1 month) History of inflammatory bowel disease Medical patient at bed rest Age 61-74 Arthroscopic surgery Major open surgery (> 45 min) Laparoscopic surgery (> 45 min) Malignancy Confined to bed (> 72 hours) Immobilizing plaster cast Central venous access Age >= 75 History of VTE Family history of VTE Factor V Leiden Prothrombin [id number] Lupus anticoagulant Anticardiolipin antibodies Elevated serum homocysteine Heparin-induced thrombocytopenia Other congenital or acquired thrombophilia Stroke (< 1 month) Elective arthroplasty Hip, pelvis, or leg fracture Acute spinal cord injury (< 1 month) Prophylaxis Regimen Total Risk Factor Score Risk Level Prophylaxis Regimen 0-1 Low Early ambulation 2 Moderate Order ONE of the following: *Sequential Compression Device (SCD) *Heparin 5000 units SQ BID 3-4 Higher Order ONE of the following medications: *Heparin 5000 units SQ TID *Enoxaparin/Lovenox 40 mg SQ daily (WT < 150 kg, CrCl > 30 mL/min) *Enoxaparin/Lovenox 30 mg SQ daily (WT < 150 kg, CrCl > 10-29 mL/min) *Enoxaparin/Lovenox 30 mg SQ BID (WT < 150 kg, CrCl > 30 mL/min) AND/OR *Sequential Compression Device (SCD) 5 or more Highest Order ONE of the following medications: *Heparin 5000 units SQ TID (Preferred with Epidurals) *Enoxaparin/Lovenox 40 mg SQ daily (WT < 150 kg, CrCl > 30 mL/min) *Enoxaparin/Lovenox 30 mg SQ daily (WT < 150 kg, CrCl > 10-29 mL/min) *Enoxaparin/Lovenox 30 mg SQ BID (WT < 150 kg, CrCl > 30 mL/min) AND *Sequential Compression Device (SCD) Assessment and Plan Problem List: (1) Alcohol abuse ICD Code: F10.10 - Alcohol abuse, uncomplicated Status: Acute (2) Jaundice ICD Code: R17 - Unspecified jaundice (3) Elevated LFTs ICD Code: R79.89 - Other specified abnormal findings of blood chemistry (4) Pancreatitis ICD Code: K85.90 - Acute pancreatitis without necrosis or infection, unspecified (5) Hypokalemia ICD Code: E87.6 - Hypokalemia Status: Acute Assessment and Plan A/P: 1. Alcohol Abuse: Heavy. Drinks daily, currently at [facility], last drink approx 4 days ago. CIWA, Seizure Precautions, MVT/Thiamine/Folate. 2. Jaundice: secondary to liver dysfunction, hyperbilirubinemia, Total Bili 17. Check Gallbladder US. Repeat labs in am, GI consult as needed. 3. Elevated LFTs: mildly improved from previous labs 06/04/17, will monitor, repeat labs in am. 4. Pancreatitis: Lipase 961. Analgesics/antiemetics as needed, repeat Lipase in am. Follow up imaging as above. 5. Hypokalemia: K+ 3.2, will replace and recheck in am. 6. DVT Prophylaxis: SCD/Teds. 7. Social work for d/c planning as needed. 8. Case discussed w/ ER physician at length. Della Herbert MD Jul 05, 2017 21:49
[2017-07-05 21:57] VITALS: O2SAT 98
[2017-07-05 22:06] LABS: BANDS 1 % (0-6); BASOPHILS 1 % (0-2); EOSINOPHILS 1 % (0-4); NEUTROPHIL # MANUAL DIFF 3.6 TH/MM3 (1.8-7.7); POLYS (SEG NEUTROPHILS) 59 % (16-70); WBC DIFF SAMPLE 100
[2017-07-05 22:06] LABS: BLOOD, URINE NEG (NEG); COMMENT (UR) CULT NOT INDICATED; CULTURE IF INDICATED CULT NOT INDICATED; GLUCOSE,URINE NEG (NEG); HYALINE CAST, URINE 1 /lpf (RARE); KETONE, URINE NEG (NEG); NITRITE,URINE NEG (NEG); PH, URINE 6.5 (5.0-8.5); URINE COLOR DARK-YELLOW (YELLW/STRAW)
[2017-07-05 22:07] LABS: PLATELET ESTIMATE SMEAR NORMAL (NORMAL); PLATELET MORPHOLOGY NORMAL (NORMAL); STOMATOCYTES 1+ (NORMAL)
[2017-07-05] MEDS: LACTULOSE SYRUP 20 GM/30 ML CUP PO SCH (22:07)
[2017-07-05 22:08] LABS: SCAN/DIFF FINAL DIFF MANUAL
[2017-07-06] VITALS (7 sets, daily range): BP systolic 105–133; BP diastolic 58–85; PULSE 81–96; RESP 16–18; TEMP 97.9–98.7; O2SAT 97–100
[2017-07-06] MEDS ORDERED: POTASSIUM CHLORIDE 20 MEQ CONTROLLED RELEASE TAB PO ONE ×2 (00:15→10:45)
[2017-07-06] MEDS: LACTULOSE SYRUP 20 GM/30 ML CUP PO SCH ×3 (06:04→22:16)
--- NOTE | 2017-07-06 08:04 | PD.CONS ---
HPI History of Present Illness This is a 31 year old male who was sent to the emergency room from [facility] for further evaluation of jaundice. He has a history of ETOH abuse, drinking 4 shots daily. He reports that he admitted himself to [facility] for detox 4 days ago. He reports that he has been jaundiced for the past 2-3 weeks. He denies any nausea or vomiting, abdominal pain. He has occasional has constipation, but reports this is controlled with diet. He denies heartburn, reflux, diarrhea, melena, or hematochezia. He denies any abnormal weight changes. He reports a history of hepatitis A at age 11 or 12. He does believe his dad had alcoholic liver disease. He denies any acetaminophen products, new medications, or herbal supplements. (Ghislaine Rapp) PFSH Past Medical History Anxiety, Depression Hepatitis A at age 12/13 Alcohol Abuse DTs/ETOH withdrawal seizures Past Surgical History None (Ghislaine Rapp) Coded Allergies: No Known Allergies (Unverified , 02/19/17) Medications Allergies Coded Allergies Type Severity Reaction Last Updated Verified No Known Allergies 02/19/17 No Active Scripts Medications Dose Route/Sig Max Daily Dose Days Date Category Chlordiazepoxide HCl 25 Mg Capsule 25 Mg PO TID PRN 06/04/17 Rx Multi Vitamin Mens (Multiple Vitamin) 1 Tab Tab 06/04/17 Reported [potassium vit] 06/04/17 Reported Family History Father had alcoholic liver disease Social History Drinks 4-5 shots per day No tobacco use No illicit use (Ghislaine Rapp) Review of Systems Constitutional: COMPLAINS OF: Fatigue, DENIES: Weight gain, Weight loss, Change in appetite Respiratory: DENIES: Cough, Shortness of breath Cardiovascular: DENIES: Chest pain Gastrointestinal: COMPLAINS OF: Constipation, DENIES: Abdominal pain, Black stools, Bloody stools, Diarrhea, Nausea, Vomiting, Anorexia, Swelling of Abdomen , Heartburn Musculoskeletal: DENIES: Joint pain, Back pain Integumentary: COMPLAINS OF: Abnormal pigmentation, Jaundice Hematologic/lymphatic: DENIES: Bruising Psychiatric: DENIES: Confusion (Ghislaine Rapp) GI Exam Vitals I&O Vital Signs Date Time Temp Pulse Resp B/P (MAP) Pulse Ox O2 Delivery O2 Flow Rate FiO2 07/06/17 04:42 98.7 83 18 124/70 (88) 97 07/06/17 00:18 98.2 96 17 133/82 (99) 100 07/05/17 21:57 98 07/05/17 17:25 98.5 122 20 119/74 (89) 100 I/O 07/05/17 07/05/17 07/05/17 07/06/17 07/06/17 07/06/17 07:00 15:00 23:00 07:00 15:00 23:00 Intake Total 200 ml Balance 200 ml Intake Oral 200 ml # Voids 2 # Bowel Movements 1 Laboratory Test 07/05/17 20:25 07/05/17 21:45 White Blood Count 6.0 TH/MM3 Red Blood Count 3.49 MIL/MM3 Hemoglobin 12.2 GM/DL Hematocrit 36.0 % Mean Corpuscular Volume 103.2 FL Mean Corpuscular Hemoglobin 34.9 PG Mean Corpuscular Hemoglobin Concent 33.8 % Red Cell Distribution Width 17.6 % Platelet Count 254 TH/MM3 Mean Platelet Volume 10.0 FL CBC Comment AUTO DIFF Differential Total Cells Counted 100 Neutrophils % (Manual) 59 % Band Neutrophils % 1 % Lymphocytes % 27 % Monocytes % 11 % Eosinophils % 1 % Basophils % 1 % Neutrophils # (Manual) 3.6 TH/MM3 Differential Comment FINAL DIFF MANUAL Platelet Estimate NORMAL Platelet Morphology Comment NORMAL Stomatocytes 1+ Prothrombin Time 12.8 SEC Prothromb Time International Ratio 1.2 RATIO Activated Partial Thromboplast Time 30.2 SEC Blood Urea Nitrogen 4 MG/DL Creatinine 1.03 MG/DL Random Glucose 139 MG/DL Total Protein 6.6 GM/DL Albumin 3.1 GM/DL Calcium Level 9.8 MG/DL Alkaline Phosphatase 458 U/L Aspartate Amino Transf (AST/SGOT) 165 U/L Alanine Aminotransferase (ALT/SGPT) 93 U/L Total Bilirubin 17.5 MG/DL Direct Bilirubin 14.5 MG/DL Sodium Level 135 MEQ/L Potassium Level 3.2 MEQ/L Chloride Level 95 MEQ/L Carbon Dioxide Level 31.6 MEQ/L Anion Gap 8 MEQ/L Estimat Glomerular Filtration Rate 84 ML/MIN Indirect Bilirubin 3.0 MG/DL Ammonia 84 MCMOL/L Lipase 961 U/L Ethyl Alcohol Level LESS THAN 3 MG/DL Urine Color DARK-YELLOW Urine Turbidity CLEAR Urine pH 6.5 Urine Specific [place] 1.009 Urine Protein TRACE mg/dL Urine Glucose (UA) NEG mg/dL Urine Ketones NEG mg/dL Urine Occult Blood NEG Urine Nitrite NEG Urine Bilirubin LARGE Urine Urobilinogen 2.0 MG/DL Urine Leukocyte Esterase NEG Urine WBC 1 /hpf Urine Hyaline Casts 1 /lpf Microscopic Urinalysis Comment CULT NOT INDICATED Physical Examination HEENT: Normocephalic; atraumatic; + jaundice. CHEST: CTA CARDIAC: RRR ABDOMEN: Soft, nondistended, nontender; hepatosplenomegaly; bowel sounds are present in all four quadrants. EXTREMITIES: No clubbing, cyanosis, or edema. SKIN: + jaundice. [employer] RO[employer] ATTENDANT: Lethargic and oriented times three. (Ghislaine Rapp) Assessment and Plan Plan ASSESSMENT: - Alcoholic hepatitis, elevated LFTs. Pt with hx of ETOH abuse (4-5 shots per day), 2-3 week hx of jaundice. He has been at [facility] for detox x 4 days and sent for evaluation of jaundice. He is asymptomatic with this- no n/v/pain. US pending. T. Bili 17.5, Direct 14.5, Indirect 3.09, AST 165, ALT 93, Alk Phosph 458. DF 21.180. MELD 20. Hepatitis panel pending. CT scan. Liver workup. Most likely this is alcoholic hepatitis. Lasix, aldactone, propranolol, lactulose - Hepatic encephalopathy. Ammonia 84. He is lethargic, but oriented. Lactulose. - Elevated Lipase, undetermined significance. CT scan abdomen and pelvis. Of note, he is not having n/v, abdominal pain. - Hypokalemia, hyponatremia per attending. - Macrocytic anemia. HH 12.2/36.0, MCV 103.2. - ETOH abuse, DT precautions per attending. PLAN: - BR[place]LEY - Cont. Lasix, Aldactone - Cont. Lactulose - Cont. Propranolol - Hepatitis profile - AFP level - MARLENE, ASMA, AMA - Ceruloplasmin, Alpha 1 Antitrypsin - Ferritin, Iron saturation - CT scan abdomen and pelvis with iv contrast - CBC, PT/INR, CMP in am - Supportive care - Further recommendations to follow based on results of above - Pt seen and examined by Dr. Danielson and myself and this note is written on his behalf (Ghislaine Rapp) Physician Comments Seen and examined with RN ANESTHETIST<, going for CT. Start on solumederol 40mg 1vpb q 12 hours. Will follow. Thank you (Pretty Danielson MD) Ghislaine Rapp Jul 06, 2017 08:04 Pretty Danielson MD Jul 06, 2017 10:11
[2017-07-06] MEDS ORDERED: DIATRIZOATE MEGLUM/DIATRIZOATE SOD 9 ML CUP PO ONE (08:45)
--- NOTE | 2017-07-06 08:46 | RADRPT ---
EXAM DATE/TIME: 07/06/2017 07:14 [facility] COMPARISON: US ABDOMEN - GALLBLADDER, June 04, 2017, 13:57. INDICATIONS : Evaluate common bile duct. MEDICAL HISTORY : Hypercholesterolemia. Hypertension. Hepatitis A. ETOH abuse. Seizures. Cardiac disorder. Anxiety. SURGICAL HISTORY : None. ENCOUNTER: Subsequent ACUITY: 2 days PAIN SCORE: 2/10 LOCATION: Right upper quadrant MEASUREMENTS: LIVER: 20.2 cm length COMMON DUCT: 4 mm RIGHT KIDNEY: 12.0 x 5.5 x 3.6 cm FINDINGS: LIVER: The liver is enlarged and echogenic without focal lesion. The portal vein flow is hepatopetal. COMMON DUCT: No intraluminal mass or stone visualized. GALLBLADDER: The gallbladder is not distended. It is contracted. There is echogenic material within the gallbladde r likely related to sludge. Shadowing gallstones are not seen. PANCREAS: The pancreas is obscured by overlying bowel gas. RIGHT KIDNEY: No evidence of hydronephrosis, stone, or mass. CONCLUSION: 1. Hepatomegaly with suspected hepatic steatosis. 2. Contracted gallbladder with sludge. Cory James MD on July 06, 2017 at 8:42 Board Certified Radiologist. This report was verified electronically.
[2017-07-06] MEDS: FOLIC ACID 1 MG TAB PO SCH (09:30)
[2017-07-06] MEDS: THIAMINE HCL 100 MG TAB PO SCH (09:30)
[2017-07-06] MEDS: SPIRONOLACTONE 50 MG TAB PO SCH (09:30)
[2017-07-06] MEDS: PROPRANOLOL HCL 10 MG TAB PO SCH ×2 (09:30→22:16)
[2017-07-06] MEDS: MULTIVITAMINS/MINERALS THERAPEUTIC TAB PO SCH (09:30)
[2017-07-06] MEDS: PANTOPRAZOLE SOD 40 MG DELAYED RELEASE TAB PO SCH (09:31)
[2017-07-06] MEDS: DOCUSATE SODIUM 50 MG/SENNA 8.6 MG TAB PO SCH ×2 (09:31→22:16)
[2017-07-06] MEDS: FUROSEMIDE 40 MG TAB PO SCH (09:31)
[2017-07-06 09:38] LABS: INTERNATIONAL NORMALIZED RATIO 1.1 RATIO; PROTHROMBIN TIME - PATIENT 12.7 SEC (9.8-11.6)
[2017-07-06 09:38] LABS: HEMATOCRIT 33.5 % (39.0-51.0); HEMO FLAGS AUTO DIFF; MEAN CELL VOLUME 103.6 FL (80.0-100.0); MEAN CORPUSCULAR HEMOGLOBIN 34.5 PG (27.0-34.0); MEAN CORPUSCULAR HGB CONC 33.3 % (32.0-36.0); PLATELET COUNT 228 TH/MM3 (150-450); RED BLOOD COUNT 3.23 MIL/MM3 (4.50-5.90); RED CELL DISTRIBUTION WIDTH 17.9 % (11.6-17.2); WHITE BLOOD COUNT 5.8 TH/MM3 (4.0-11.0)
[2017-07-06 10:12] LABS: BANDS 1 % (0-6); BASOPHILS 2 % (0-2); EOSINOPHILS 2 % (0-4); MYELOCYTES 1 % (0-0); NEUTROPHIL # MANUAL DIFF 3.2 TH/MM3 (1.8-7.7); PLATELET ESTIMATE SMEAR NORMAL (NORMAL); PLATELET MORPHOLOGY NORMAL (NORMAL); POLYS (SEG NEUTROPHILS) 54 % (16-70); SCAN/DIFF FINAL DIFF MANUAL; WBC DIFF SAMPLE 100
[2017-07-06 10:14] LABS: STOMATOCYTES 1+ (NORMAL); TARGET CELLS 2+ (NORMAL)
[2017-07-06 10:20] LABS: ALKALINE PHOSPHATASE 367 U/L (45-117); ALT (GPT) 68 U/L (12-78); ANION GAP 10 MEQ/L (5-15); AST (GOT) 124 U/L (15-37); BICARBONATE 29.1 MEQ/L (21.0-32.0); BLOOD UREA NITROGEN 4 MG/DL (7-18); CHLORIDE 100 MEQ/L (98-107); GLOMERULAR FILTRATION RATE 88 ML/MIN (>89); SODIUM (NA) 139 MEQ/L (136-145)
[2017-07-06 10:30] LABS: TOTAL BILIRUBIN ADULT 15.5 MG/DL (0.2-1.0)
[2017-07-06 10:31] LABS: POTASSIUM 2.9 MEQ/L (3.5-5.1)
[2017-07-06] MEDS ORDERED: POTASSIUM CHLOR 20 MEQ PREMIX 100 ML IV ONE (10:45)
[2017-07-06] MEDS ORDERED: IOHEXOL 350 MG/ML 10 ML VIAL (for RAD DIAG) IV PUSH ONE (11:10)
[2017-07-06] MEDS: SODIUM CHLORIDE 0.9% FLUSH 10 ML FLUSH IV FLUSH SCH ×2 (11:39→22:15)
[2017-07-06 11:40] LABS: TRANSFERRIN IRON PROFILE 99 MG/DL (200-360)
[2017-07-06] MEDS: methylPREDNISolone SOD SUCC 40 MG/1 ML VIAL IV PUSH SCH ×2 (11:40→22:16)
[2017-07-06 11:51] LABS: FERRITIN 3122 NG/ML (26-388)
--- NOTE | 2017-07-06 11:51 | RADRPT ---
EXAM DATE/TIME: 07/06/2017 11:01 [facility] COMPARISON: US ABDOMEN - GALLBLADDER, July 06, 2017, 7:14. INDICATIONS : Hyperbilirubenemia. IV CONTRAST: 71 cc Omnipaque 350 (iohexol) IV ORAL CONTRAST: Prescribed oral contrast ingested. RADIATION DOSE: 9.96 CTDIvol (mGy) MEDICAL HISTORY : Hepatitis A. Seizures. Hypertension. SURGICAL HISTORY : None. ENCOUNTER: Initial ACUITY: 1 day PAIN SCALE: 5/10 LOCATION: Bilateral abdomen. TECHNIQUE: Volumetric scanning of the abdomen and pelvis was performed. Using automated exposure control and ad justment of the mA and/or kV according to patient size, radiation dose was kept as low as reasonably achievable to obtain optimal diagnostic quality images. DICOM format image data is available electro nically for review and comparison. FINDINGS: LOWER LUNGS: The visualized lower lungs are clear. LIVER: The liver is enlarged and diffusely decreased in density. The inferior aspect of the right lobe liver extends to the iliac crest region. No focal hepatic lesion is seen. There some minimal focal fatty s paring in the chanell hepatis region. Biliary duct dilatation is not seen. The gallbladder is contracte d. The gallbladder wall appears thickened. Inflammatory change around the gallbladder is not seen. SPLEEN: Normal size without lesion. PANCREAS: Within normal limits. KIDNEYS: Normal in size and shape. There is no mass, stone or hydronephrosis. ADRENAL GLANDS: Within normal limits. VASCULAR: There is no aortic aneurysm. BOWEL/MESENTERY: The stomach, small bowel, and colon demonstrate no acute abnormality. There is no free intraperitone al air or fluid. ABDOMINAL WALL: Within normal limits. RETROPERITONEUM: There is no lymphadenopathy. BLADDER: No wall thickening or mass. REPRODUCTIVE: Within normal limits. INGUINAL: There is no lymphadenopathy or hernia. MUSCULOSKELETAL: Within normal limits for patient age. CONCLUSION: 1. Very prominent hepatomegaly with diffuse hepatic steatosis and minimal focal fatty sparing in the chanell hepatis region. 2. No biliary duct dilatation is seen. 3. The gallbladder is contracted. The gallbladder wall does appear thickened. Cory James MD on July 06, 2017 at 11:46 Board Certified Radiologist. This report was verified electronically.
[2017-07-06 12:01] LABS: MAGNESIUM 1.2 MG/DL (1.5-2.5)
[2017-07-06] MEDS ORDERED: SODIUM CHLORID 0.9% 500 ML INJ 500 ML IV SCH (12:30)
[2017-07-06] MEDS: MAGNESIUM SULFATE 1 GM PREMIX 100 ML IV SCH ×2 (13:45→14:49)
--- NOTE | 2017-07-06 20:14 | HHI.PR ---
Subjective Remarks Patient seen this morning around 10:30 AM. Says he is feeling all right. Denies any chest pain or shortness of breath. Denies any abdominal pain. Objective Vital Signs Date Time Temp Pulse Resp B/P (MAP) Pulse Ox O2 Delivery O2 Flow Rate FiO2 07/06/17 16:31 98.7 87 16 105/58 (74) 97 07/06/17 12:14 97.9 81 16 123/85 (98) 99 07/06/17 08:50 98.1 81 16 119/77 (91) 99 07/06/17 04:42 98.7 83 18 124/70 (88) 97 07/06/17 00:18 98.2 96 17 133/82 (99) 100 07/05/17 21:57 98 I/O 07/05/17 07/05/17 07/05/17 07/06/17 07/06/17 07/06/17 07:00 15:00 23:00 07:00 15:00 23:00 Intake Total 400 ml 600 ml Balance 400 ml 600 ml Intake Oral 200 ml IV Total 200 ml 600 ml # Voids 2 # Bowel Movements 1 Result Diagram: 07/06/17 0820 07/06/17 0826 Imaging Last Impressions Gall Bladder Ultrasound 07/06/17 0000 Signed Impressions: Service Date/Time: Thursday, July 06, 2017 07:14 - CONCLUSION: 1. Hepatomegaly with suspected hepatic steatosis. 2. Contracted gallbladder with sludge. Cory James MD Abdomen/Pelvis CT 07/06/17 0000 Signed Impressions: Service Date/Time: Thursday, July 06, 2017 11:01 - CONCLUSION: 1. Very prominent hepatomegaly with diffuse hepatic steatosis and minimal focal fatty sparing in the chanell hepatis region. 2. No biliary duct dilatation is seen. 3. The gallbladder is contracted. The gallbladder wall does appear thickened. Cory James MD Objective Remarks GENERAL: 31-year-old chronically ill-appearing male sitting up on commode. Alert. SKIN: Warm and dry. HEAD: Normocephalic. EYES: positive scleral icterus. No injection or drainage. NECK: Supple, trachea midline. No JVD. CARDIOVASCULAR: Regular rate and rhythm without murmurs, gallops, or rubs. RESPIRATORY: Breath sounds equal bilaterally. No accessory muscle use. GASTROINTESTINAL: Abdomen soft, non-tender, nondistended. MUSCULOSKELETAL: No cyanosis, or edema. BACK: Nontender without obvious deformity. No CVA tenderness. A/P Assessment and Plan //Alcoholic hepatitis. -Heavy drinker. Last drink 4 days prior to admission. 07/06-Alkaline phosphatase 367, AST 124, ALT 68 consistent with alcoholism. However this has improved from admission -CT abdomen with hepatomegaly,'s diffuse hepatic steatosis, minimal local fatty sparing in the chanell hepatis region -Continue CIWA, seizure precautions, thiamine -GI consulted. Started on Solu-Medrol. Continue to monitor // Jaundice: secondary to liver dysfunction, hyperbilirubinemia, Total Bili 17 on admission. -Gallbladder nondistended on CT. -07/06. Bilirubin improved 15. CT abdomen reviewed without any gallbladder distention. Continue to monitor. // Elevated LFTs: mildly improved from previous labs 06/04/17, will monitor, repeat labs in am. //Pancreatitis: Lipase 961 on admission. -Analgesics/antiemetics as needed. -07/06. CT abdomen with no evidence of pancreatitis. Lipase improving 540. // Hypokalemia: K+ 2.9. Replaced. Recheck in a.m. //Hypomagnesemia. Magnesium 1.2. Replaced. // DVT Prophylaxis: SCD/Teds. Discharge Planning home when cleared by GI. Dixon Valencia MD Jul 06, 2017 20:14
[2017-07-07] VITALS (7 sets, daily range): BP systolic 90–120; BP diastolic 55–83; PULSE 74–87; RESP 16–18; TEMP 97.2–98.9; O2SAT 95–100
[2017-07-07] MEDS: LACTULOSE SYRUP 20 GM/30 ML CUP PO SCH ×3 (05:33→20:57)
[2017-07-07] MEDS: DOCUSATE SODIUM 50 MG/SENNA 8.6 MG TAB PO SCH ×2 (10:01→20:57)
[2017-07-07] MEDS: SODIUM CHLORIDE 0.9% FLUSH 10 ML FLUSH IV FLUSH SCH ×2 (10:01→20:58)
[2017-07-07] MEDS: FOLIC ACID 1 MG TAB PO SCH (10:02)
[2017-07-07] MEDS: PANTOPRAZOLE SOD 40 MG DELAYED RELEASE TAB PO SCH (10:02)
[2017-07-07] MEDS: MULTIVITAMINS/MINERALS THERAPEUTIC TAB PO SCH (10:02)
[2017-07-07] MEDS: THIAMINE HCL 100 MG TAB PO SCH (10:02)
[2017-07-07] MEDS: FUROSEMIDE 40 MG TAB PO SCH (10:03)
[2017-07-07] MEDS: PROPRANOLOL HCL 10 MG TAB PO SCH ×2 (10:03→20:58)
[2017-07-07] MEDS: SPIRONOLACTONE 50 MG TAB PO SCH (10:04)
[2017-07-07] MEDS: methylPREDNISolone SOD SUCC 40 MG/1 ML VIAL IV PUSH SCH ×2 (11:25→23:45)
[2017-07-07 11:34] LABS: MEAN CELL VOLUME 103.4 FL (80.0-100.0); MEAN CORPUSCULAR HEMOGLOBIN 34.4 PG (27.0-34.0); MEAN CORPUSCULAR HGB CONC 33.3 % (32.0-36.0); PLATELET COUNT 299 TH/MM3 (150-450); RED BLOOD COUNT 3.38 MIL/MM3 (4.50-5.90); RED CELL DISTRIBUTION WIDTH 17.6 % (11.6-17.2)
[2017-07-07 11:41] LABS: INTERNATIONAL NORMALIZED RATIO 1.1 RATIO; PROTHROMBIN TIME - PATIENT 12.2 SEC (9.8-11.6)
[2017-07-07 11:44] LABS: HEMO FLAGS AUTO DIFF
[2017-07-07 11:56] LABS: ALT (GPT) 63 U/L (12-78); ANION GAP 12 MEQ/L (5-15); AST (GOT) 109 U/L (15-37); BICARBONATE 25.1 MEQ/L (21.0-32.0); BLOOD UREA NITROGEN 6 MG/DL (7-18); CHLORIDE 98 MEQ/L (98-107); GLOMERULAR FILTRATION RATE 84 ML/MIN (>89); MAGNESIUM 1.9 MG/DL (1.5-2.5); POTASSIUM 3.3 MEQ/L (3.5-5.1); SODIUM (NA) 135 MEQ/L (136-145)
[2017-07-07 12:02] LABS: ALKALINE PHOSPHATASE 358 U/L (45-117); TOTAL BILIRUBIN ADULT 16.3 MG/DL (0.2-1.0)
[2017-07-07 12:21] LABS: BANDS 11 % (0-6); NEUTROPHIL # MANUAL DIFF 11.2 TH/MM3 (1.8-7.7); PLATELET ESTIMATE SMEAR NORMAL (NORMAL); PLATELET MORPHOLOGY NORMAL (NORMAL); POLYS (SEG NEUTROPHILS) 69 % (16-70); SCAN/DIFF FINAL DIFF MANUAL; WBC DIFF SAMPLE 100
[2017-07-07 12:22] LABS: STOMATOCYTES 1+ (NORMAL); TARGET CELLS 2+ (NORMAL)
[2017-07-07] MEDS ORDERED: POTASSIUM CHLORIDE 20 MEQ CONTROLLED RELEASE TAB PO ONE (12:30)
--- NOTE | 2017-07-07 13:37 | HHI.GIFU ---
Subjective Remarks Lying in bed in no apparent distress. Denies abdominal pain. No nausea or vomiting. Tolerating diet. ([place]) Objective Vitals I&O Vital Signs Date Time Temp Pulse Resp B/P (MAP) Pulse Ox O2 Delivery O2 Flow Rate FiO2 07/07/17 11:43 98.7 80 17 112/69 (83) 100 07/07/17 10:04 81 118/69 (85) 07/07/17 07:56 98.9 82 16 90/55 (67) 95 07/07/17 05:18 98.0 77 18 120/73 (89) 97 07/06/17 23:58 98.7 81 18 116/67 (83) 97 07/06/17 20:35 98.7 92 18 105/60 (75) 97 07/06/17 16:31 98.7 87 16 105/58 (74) 97 I/O 07/06/17 07/06/17 07/06/17 07/07/17 07/07/17 07/07/17 07:00 15:00 23:00 07:00 15:00 23:00 Intake Total 400 ml 600 ml Balance 400 ml 600 ml Intake Oral 200 ml IV Total 200 ml 600 ml # Voids 2 1 # Bowel Movements 1 Laboratory Laboratory Tests Test 07/06/17 15:25 07/07/17 09:29 Tumor Marker Alpha Fetoprotein 2.2 White Blood Count 14.0 Red Blood Count 3.38 Hemoglobin 11.6 Hematocrit 35.0 Mean Corpuscular Volume 103.4 Mean Corpuscular Hemoglobin 34.4 Mean Corpuscular Hemoglobin Concent 33.3 Red Cell Distribution Width 17.6 Platelet Count 299 Mean Platelet Volume 9.8 CBC Comment AUTO DIFF Differential Total Cells Counted 100 Neutrophils % (Manual) 69 Band Neutrophils % 11 Lymphocytes % 12 Monocytes % 8 Neutrophils # (Manual) 11.2 Differential Comment FINAL DIFF MANUAL Platelet Estimate NORMAL Platelet Morphology Comment NORMAL Target Cells 2+ Stomatocytes 1+ Prothrombin Time 12.2 Prothromb Time International Ratio 1.1 Blood Urea Nitrogen 6 Creatinine 1.03 Random Glucose 177 Total Protein 6.3 Albumin 2.8 Calcium Level 9.5 Magnesium Level 1.9 Alkaline Phosphatase 358 Aspartate Amino Transf (AST/SGOT) 109 Alanine Aminotransferase (ALT/SGPT) 63 Total Bilirubin 16.3 Sodium Level 135 Potassium Level 3.3 Chloride Level 98 Carbon Dioxide Level 25.1 Anion Gap 12 Estimat Glomerular Filtration Rate 84 Imaging Last Impressions Gall Bladder Ultrasound 07/06/17 0000 Signed Impressions: Service Date/Time: Thursday, July 06, 2017 07:14 - CONCLUSION: 1. Hepatomegaly with suspected hepatic steatosis. 2. Contracted gallbladder with sludge. Cory James MD Abdomen/Pelvis CT 07/06/17 0000 Signed Impressions: Service Date/Time: Thursday, July 06, 2017 11:01 - CONCLUSION: 1. Very prominent hepatomegaly with diffuse hepatic steatosis and minimal focal fatty sparing in the chanell hepatis region. 2. No biliary duct dilatation is seen. 3. The gallbladder is contracted. The gallbladder wall does appear thickened. Cory James MD Physical Exam HEENT: Normocephalic; atraumatic. + scleral icterus NECK: Neck is supple. CHEST: CTA CARDIAC: RRR with no murmur gallop or rubs. ABDOMEN: Soft, nondistended, nontender; bowel sounds are present. EXTREMITIES: No clubbing, cyanosis, or edema. SKIN: Normal; no rash; no jaundice. 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 ([place]) Assessment and Plan Plan ASSESSMENT: - Alcoholic hepatitis, elevated LFTs. Pt with hx of ETOH abuse (4-5 shots per day), 2-3 week hx of jaundice. He has been at [facility] for detox x 4 days and sent for evaluation of jaundice. He is asymptomatic with this- no n/v/pain. US pending. T. Bili 17.5, Direct 14.5, Indirect 3.09, AST 165, ALT 93, Alk Phosph 458. DF 21.180. MELD 20. Hepatitis panel pending. CT scan. Liver workup. Most likely this is alcoholic hepatitis. Lasix, aldactone, propranolol, lactulose - Hepatic encephalopathy. Ammonia 84. He is lethargic, but oriented. Lactulose. - Elevated Lipase, undetermined significance. CT scan abdomen and pelvis. Of note, he is not having n/v, abdominal pain. - Hypokalemia, hyponatremia per attending. - Macrocytic anemia. HH 12.2/36.0, MCV 103.2. - ETOH abuse, DT precautions per attending. 07/07/17--Patient states he is doing well. No abdominal pain, n/v. Tolerating diet. T. Bili 16.3, AST 109, ALT 63, Alk Phos 358. Hepatitis panel pending. AFP, MARLENE, ASMA, AMA, Ceruloplasmin, Alpha 1 Antitrypsin pending. Ferritin 3122, Iron 131, TIBC 139, % saturation 94.5. PLAN: - BRADLEY - Cont. Lasix, Aldactone - Cont. Lactulose - Cont. Propranolol - Await liver workup, labs pending - Monitor labs - Supportive care - Further recommendations to follow based on results of above Patient seen and examined by Dr. Danielson and myself and this note is written on his behalf ([place]) Physician Comments Seen and examined with TAVIA, no gi bleeding. CT noted. GI contreras in progress. (Pretty Danielson MD) [place] Jul 07, 2017 13:37 Pretty Danielson MD Jul 07, 2017 14:56
--- NOTE | 2017-07-07 15:16 | HHI.PR ---
Subjective Remarks Patient seen this morning around 10:30 AM. Says he is feeling all right. Denies any chest pain or shortness of breath. Denies any abdominal pain. Objective Vital Signs Date Time Temp Pulse Resp B/P (MAP) Pulse Ox O2 Delivery O2 Flow Rate FiO2 07/07/17 11:43 98.7 80 17 112/69 (83) 100 07/07/17 10:04 81 118/69 (85) 07/07/17 07:56 98.9 82 16 90/55 (67) 95 07/07/17 05:18 98.0 77 18 120/73 (89) 97 07/06/17 23:58 98.7 81 18 116/67 (83) 97 07/06/17 20:35 98.7 92 18 105/60 (75) 97 07/06/17 16:31 98.7 87 16 105/58 (74) 97 I/O 07/06/17 07/06/17 07/06/17 07/07/17 07/07/17 07/07/17 07:00 15:00 23:00 07:00 15:00 23:00 Intake Total 400 ml 600 ml Balance 400 ml 600 ml Intake Oral 200 ml IV Total 200 ml 600 ml # Voids 2 1 # Bowel Movements 1 Result Diagram: 07/07/1792807/07/17928 Objective Remarks GENERAL: 31-year-old chronically ill-appearing male lying in bed. Alert. SKIN: Warm and dry. HEAD: Normocephalic. EYES: positive scleral icterus. No injection or drainage. NECK: Supple, trachea midline. No JVD. CARDIOVASCULAR: Regular rate and rhythm without murmurs, gallops, or rubs. RESPIRATORY: Breath sounds equal bilaterally. No accessory muscle use. GASTROINTESTINAL: Abdomen soft, non-tender, nondistended. MUSCULOSKELETAL: No cyanosis, or edema. BACK: Nontender without obvious deformity. No CVA tenderness. A/P Assessment and Plan =====07/07/17 BR 16.3 from 15.5. worsening. cont steroids. hypokelemia. replaced. labs for tomorrow. hypomagnesemia. 1.9 resolved after replacement. leukocytosis. 14. Secondary to steroids. //Alcoholic hepatitis. -Heavy drinker. Last drink 4 days prior to admission. 07/06-Alkaline phosphatase 367, AST 124, ALT 68 consistent with alcoholism. However this has improved from admission -CT abdomen with hepatomegaly,'s diffuse hepatic steatosis, minimal local fatty sparing in the chanell hepatis region -Continue CIWA, seizure precautions, thiamine -GI consulted. Started on Solu-Medrol. Continue to monitor // Jaundice: secondary to liver dysfunction, hyperbilirubinemia, Total Bili 17 on admission. -Gallbladder nondistended on CT. -07/06. Bilirubin improved 15. CT abdomen reviewed without any gallbladder distention. Continue to monitor. // Elevated LFTs: mildly improved from previous labs 06/04/17, will monitor, repeat labs in am. //Pancreatitis: Lipase 961 on admission. -Analgesics/antiemetics as needed. -07/06. CT abdomen with no evidence of pancreatitis. Lipase improving 540. // Hypokalemia: K+ 2.9. Replaced. Recheck in a.m. //Hypomagnesemia. Magnesium 1.2. Replaced. // DVT Prophylaxis: SCD/Teds. Discharge Planning home when cleared by GI. Dixon Valencia MD Jul 07, 2017 15:16
[2017-07-08] MEDS: LACTULOSE SYRUP 20 GM/30 ML CUP PO SCH ×2 (05:20→13:11)
[2017-07-08 05:39] VITALS: BP 123/82; PULSE 76; RESP 18; TEMP 98.4; O2SAT 97
[2017-07-08 08:13] VITALS: BP 120/82; PULSE 79; RESP 20; TEMP 98.6; O2SAT 97
--- NOTE | 2017-07-08 08:22 | HHI.GIFU ---
Subjective Remarks Resting in bed. No distress. Tolerating diet. No n/v/abdominal pain. (Ghislaine Rapp) Objective Vitals I&O Vital Signs Date Time Temp Pulse Resp B/P (MAP) Pulse Ox O2 Delivery O2 Flow Rate FiO2 07/08/17 05:39 98.4 76 18 123/82 (96) 97 07/07/17 23:23 98.4 74 18 120/83 (95) 98 07/07/17 19:20 98.7 85 18 120/74 (89) 98 07/07/17 18:31 97.2 87 16 116/72 (87) 97 07/07/17 11:43 98.7 80 17 112/69 (83) 100 07/07/17 10:04 81 118/69 (85) I/O 07/07/17 07/07/17 07/07/17 07/08/17 07/08/17 07/08/17 07:00 15:00 23:00 07:00 15:00 23:00 Intake Total 900 ml Balance 900 ml Intake Oral 900 ml # Voids 1 0 # Bowel Movements 0 Laboratory Laboratory Tests Test 07/07/17 09:29 White Blood Count 14.0 Red Blood Count 3.38 Hemoglobin 11.6 Hematocrit 35.0 Mean Corpuscular Volume 103.4 Mean Corpuscular Hemoglobin 34.4 Mean Corpuscular Hemoglobin Concent 33.3 Red Cell Distribution Width 17.6 Platelet Count 299 Mean Platelet Volume 9.8 CBC Comment AUTO DIFF Differential Total Cells Counted 100 Neutrophils % (Manual) 69 Band Neutrophils % 11 Lymphocytes % 12 Monocytes % 8 Neutrophils # (Manual) 11.2 Differential Comment FINAL DIFF MANUAL Platelet Estimate NORMAL Platelet Morphology Comment NORMAL Target Cells 2+ Stomatocytes 1+ Prothrombin Time 12.2 Prothromb Time International Ratio 1.1 Blood Urea Nitrogen 6 Creatinine 1.03 Random Glucose 177 Total Protein 6.3 Albumin 2.8 Calcium Level 9.5 Magnesium Level 1.9 Alkaline Phosphatase 358 Aspartate Amino Transf (AST/SGOT) 109 Alanine Aminotransferase (ALT/SGPT) 63 Total Bilirubin 16.3 Sodium Level 135 Potassium Level 3.3 Chloride Level 98 Carbon Dioxide Level 25.1 Anion Gap 12 Estimat Glomerular Filtration Rate 84 Imaging Last Impressions Gall Bladder Ultrasound 07/06/17 0000 Signed Impressions: Service Date/Time: Thursday, July 06, 2017 07:14 - CONCLUSION: 1. Hepatomegaly with suspected hepatic steatosis. 2. Contracted gallbladder with sludge. Cory James MD Abdomen/Pelvis CT 07/06/17 0000 Signed Impressions: Service Date/Time: Thursday, July 06, 2017 11:01 - CONCLUSION: 1. Very prominent hepatomegaly with diffuse hepatic steatosis and minimal focal fatty sparing in the chanell hepatis region. 2. No biliary duct dilatation is seen. 3. The gallbladder is contracted. The gallbladder wall does appear thickened. Cory James MD Physical Exam HEENT: Normocephalic; atraumatic. + scleral icterus NECK: Neck is supple. CHEST: CTA CARDIAC: RRR with no murmur gallop or rubs. ABDOMEN: Soft, nondistended, nontender; bowel sounds are present. EXTREMITIES: No clubbing, cyanosis, or edema. SKIN: Normal; no rash; no jaundice. 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 (Ghislaine Rapp) Assessment and Plan Plan ASSESSMENT: - Alcoholic hepatitis, elevated LFTs. Pt with hx of ETOH abuse (4-5 shots per day), 2-3 week hx of jaundice. He has been at [facility] for detox x 4 days and sent for evaluation of jaundice. He is asymptomatic with this- no n/v/pain. US (07/06/17)---> hepatomegaly with suspected hepatic steatosis, contracted gallbladder with sludge. CT scan abdomen and pelvis (07/06/17)---> very prominent hepatomegaly with diffuse hepatic steatosis and minimal focal fatty sparing in the chanell hepatis region, no biliary duct dilatation is seen, the gallbladder is contracted. The gallbladder wall does appear thickened. LFTs have been trending down, today's labs are pending. Hepatitis profile pending, MARLENE /ASMA/AMA pending, Alpha 1 Antitrypsin pending, Ceruloplasmin pending, Iron saturation 94.5%, Ferriitin 3122. DF 21.180. MELD 20. Most likely this is alcoholic hepatitis. Lasix, aldactone, propranolol, lactulose, solumedrol - Elevated iron saturation, ferritin. ? hemosiderosis. Will check Hfe to r/o hemochromatosis. - Hepatic encephalopathy. Ammonia 84. He is lethargic, but oriented x 3. Lactulose. - Elevated Lipase, undetermined significance. US/CT as above. Pt is not having any nausea, vomiting, abdominal pain. - Hypokalemia, hyponatremia per attending. - Macrocytic anemia. HH 11.6/35.0 MCV 103.2. - ETOH abuse, DT precautions per attending. PLAN: - BRADLEY - Cont. Lasix, Aldactone - Cont. Lactulose - Cont. Propranolol - D/C Solumedrol - Prednisone 40mg po daily - Hfe Gene - Await liver workup, labs pending - Monitor labs - Complete ETOH cessation - FU EULOGIO 2 weeks - Pt seen and examined by Dr. Lim and myself and this note is written on his behalf (Ghislaine Rapp) Physician Comments Patient seen and examined Agree with above Monitor labs Continue with current supportive care (Gurjit Lim MD) Ghislaine Rapp Jul 08, 2017 08:22 Gurjit Lim MD Jul 08, 2017 22:22
[2017-07-08] MEDS ORDERED: predniSONE 20 MG TAB PO SCH (09:00)
[2017-07-08] MEDS: DOCUSATE SODIUM 50 MG/SENNA 8.6 MG TAB PO SCH (09:00)
[2017-07-08] MEDS: PANTOPRAZOLE SOD 40 MG DELAYED RELEASE TAB PO SCH (09:21)
[2017-07-08] MEDS: PROPRANOLOL HCL 10 MG TAB PO SCH (09:21)
[2017-07-08] MEDS: THIAMINE HCL 100 MG TAB PO SCH (09:22)
[2017-07-08] MEDS: FOLIC ACID 1 MG TAB PO SCH (09:22)
[2017-07-08] MEDS: FUROSEMIDE 40 MG TAB PO SCH (09:22)
[2017-07-08] MEDS: MULTIVITAMINS/MINERALS THERAPEUTIC TAB PO SCH (09:22)
[2017-07-08] MEDS: SODIUM CHLORIDE 0.9% FLUSH 10 ML FLUSH IV FLUSH SCH (09:23)
[2017-07-08] MEDS: SPIRONOLACTONE 50 MG TAB PO SCH (09:39)
[2017-07-08 13:54] LABS: HEMATOCRIT 35.2 % (39.0-51.0); MEAN CELL VOLUME 104.8 FL (80.0-100.0); MEAN CORPUSCULAR HEMOGLOBIN 34.7 PG (27.0-34.0); MEAN CORPUSCULAR HGB CONC 33.1 % (32.0-36.0); PLATELET COUNT 358 TH/MM3 (150-450); RED BLOOD COUNT 3.36 MIL/MM3 (4.50-5.90); RED CELL DISTRIBUTION WIDTH 17.6 % (11.6-17.2); WHITE BLOOD COUNT 16.4 TH/MM3 (4.0-11.0)
[2017-07-08 14:01] LABS: HEMO FLAGS AUTO DIFF
[2017-07-08 14:18] LABS: ALKALINE PHOSPHATASE 321 U/L (45-117); ALT (GPT) 60 U/L (12-78); ANION GAP 9 MEQ/L (5-15); AST (GOT) 88 U/L (15-37); BICARBONATE 28.1 MEQ/L (21.0-32.0); BLOOD UREA NITROGEN 13 MG/DL (7-18); CHLORIDE 98 MEQ/L (98-107); GLOMERULAR FILTRATION RATE 88 ML/MIN (>89); POTASSIUM 3.6 MEQ/L (3.5-5.1); SODIUM (NA) 135 MEQ/L (136-145); TOTAL BILIRUBIN ADULT 12.9 MG/DL (0.2-1.0)
[2017-07-08 14:51] LABS: BANDS 7 % (0-6); BLASTS 1 % (0-0); WBC DIFF SAMPLE 100
[2017-07-08 14:52] LABS: MYELOCYTES 1 % (0-0); NEUTROPHIL # MANUAL DIFF 13.1 TH/MM3 (1.8-7.7); POLYS (SEG NEUTROPHILS) 72 % (16-70)
[2017-07-08 14:53] LABS: PLATELET ESTIMATE SMEAR NORMAL (NORMAL); STOMATOCYTES 1+ (NORMAL); TARGET CELLS 1+ (NORMAL)
[2017-07-08 14:54] LABS: PLATELET MORPHOLOGY NORMAL (NORMAL); SCAN/DIFF FINAL DIFF MANUAL
--- NOTE | 2017-07-08 15:20 | HHI.PR ---
Subjective Remarks Patient seen this morning around 11 AM. Denies any complaints. Denies any chest pain or shortness breath. Denies any abdominal pain. Objective Vital Signs Date Time Temp Pulse Resp B/P (MAP) Pulse Ox O2 Delivery O2 Flow Rate FiO2 07/08/17 08:13 98.6 79 20 120/82 (95) 97 07/08/17 05:39 98.4 76 18 123/82 (96) 97 07/07/17 23:23 98.4 74 18 120/83 (95) 98 07/07/17 19:20 98.7 85 18 120/74 (89) 98 07/07/17 18:31 97.2 87 16 116/72 (87) 97 I/O 07/07/17 07/07/17 07/07/17 07/08/17 07/08/17 07/08/17 07:00 15:00 23:00 07:00 15:00 23:00 Intake Total 900 ml Balance 900 ml Intake Oral 900 ml # Voids 1 0 5 # Bowel Movements 0 Result Diagram: 07/08/17 1300 07/08/17 1300 Objective Remarks GENERAL: 31-year-old chronically ill-appearing male lying in bed. Alert. No change on exam. SKIN: Warm and dry. HEAD: Normocephalic. EYES: positive scleral icterus. No injection or drainage. NECK: Supple, trachea midline. No JVD. CARDIOVASCULAR: Regular rate and rhythm without murmurs, gallops, or rubs. RESPIRATORY: Breath sounds equal bilaterally. No accessory muscle use. GASTROINTESTINAL: Abdomen soft, non-tender, nondistended. MUSCULOSKELETAL: No cyanosis, or edema. BACK: Nontender without obvious deformity. No CVA tenderness. A/P Assessment and Plan =====07/08/17 Alcoholic hepatitis. BR 12.9 from 16.3 improving. Continue steroids as per GI. -Discussed with GI. Cleared for discharge. Follow-up with GI as outpatient. Appreciate assistance. hypokelemia. Resolved after replacement. hypomagnesemia. 2.0. Stable. leukocytosis. Seem 0.4. Secondary to steroids. //Alcoholic hepatitis. -Heavy drinker. Last drink 4 days prior to admission. 07/06-Alkaline phosphatase 367, AST 124, ALT 68 consistent with alcoholism. However this has improved from admission -CT abdomen with hepatomegaly,'s diffuse hepatic steatosis, minimal local fatty sparing in the chanell hepatis region -Continue CIWA, seizure precautions, thiamine -GI consulted. Started on Solu-Medrol. Continue to monitor // Jaundice: secondary to liver dysfunction, hyperbilirubinemia, Total Bili 17 on admission. -Gallbladder nondistended on CT. -07/06. Bilirubin improved 15. CT abdomen reviewed without any gallbladder distention. Continue to monitor. // Elevated LFTs: mildly improved from previous labs 06/04/17, will monitor, repeat labs in am. //Pancreatitis: Lipase 961 on admission. -Analgesics/antiemetics as needed. -07/06. CT abdomen with no evidence of pancreatitis. Lipase improving 540. // Hypokalemia: K+ 2.9. Replaced. Recheck in a.m. //Hypomagnesemia. Magnesium 1.2. Replaced. // DVT Prophylaxis: SCD/Teds. Discharge Planning Discharge home today. Follow with GI as outpatient. Dixon Valencia MD Jul 08, 2017 15:20
[2017-07-08] MEDS ORDERED: PROP10TA6 PO (15:29)
[2017-07-08] MEDS ORDERED: PRED20 PO (15:29)
[2017-07-08] MEDS ORDERED: GNP100TA3 PO (15:29)
[2017-07-08] MEDS ORDERED: ALDA50TA2 PO (15:29)
--- NOTE | 2017-07-08 15:35 | HHI.DS ---
Discharge Summary Admission Date Jul 06, 2017 at 10:36 Discharge Date: Jul 08, 2017 Admitting Diagnosis Hyperbilirubenemia; transaminitis; alcohol abuse (1) Alcohol abuse ICD Code: F10.10 - Alcohol abuse, uncomplicated Status: Acute (2) Jaundice ICD Code: R17 - Unspecified jaundice (3) Elevated LFTs ICD Code: R79.89 - Other specified abnormal findings of blood chemistry (4) Pancreatitis ICD Code: K85.90 - Acute pancreatitis without necrosis or infection, unspecified (5) Hypokalemia ICD Code: E87.6 - Hypokalemia Status: Acute Procedures no invasive procedures Brief History - From Admission This is a 31-year-old male with a PMH of Anxiety, Depression, Hepatitis, Alcohol Abuse and h/o Alcohol Related Seizure who was sent to the ER by Tony Santillan secondary to jaundice. Pt w/ a h/o extensive alcohol abuse, drinks 4 shots daily, last drink approx 4 days ago. Now w/ jaundice. Denies fever, chills, nausea/vomiting, or diarrhea. On arrival, BP 119/74, HR 122, O2 sat 100 % on RA, Afebrile. CBC essentially unremarkable. K+ 3.2. AST 165, ALT 93, ALP 458, Total Bili 17.5. Ammonia 84. Lipase 961. INR 1.2. U/a negative. CBC/BMP: 07/08/17 1300 07/08/17 1300 Significant Findings Laboratory Tests Test 07/05/17 20:25 07/05/17 21:45 07/06/17 08:20 07/06/17 08:26 Red Blood Count 3.49 MIL/MM3 (4.50-5.90) 3.23 MIL/MM3 (4.50-5.90) Hemoglobin 12.2 GM/DL (13.0-17.0) 11.2 GM/DL (13.0-17.0) Hematocrit 36.0 % (39.0-51.0) 33.5 % (39.0-51.0) Mean Corpuscular Volume 103.2 FL (80.0-100.0) 103.6 FL (80.0-100.0) Mean Corpuscular Hemoglobin 34.9 PG (27.0-34.0) 34.5 PG (27.0-34.0) Red Cell Distribution Width 17.6 % (11.6-17.2) 17.9 % (11.6-17.2) Monocytes % 11 % (0-8) 13 % (0-8) Stomatocytes 1+ (NORMAL) 1+ (NORMAL) Prothrombin Time 12.8 SEC (9.8-11.6) 12.7 SEC (9.8-11.6) Activated Partial Thromboplast Time 30.2 SEC (24.3-30.1) Blood Urea Nitrogen 4 MG/DL (7-18) 4 MG/DL (7-18) Random Glucose 139 MG/DL (74-106) Albumin 3.1 GM/DL (3.4-5.0) 2.5 GM/DL (3.4-5.0) Alkaline Phosphatase 458 U/L (45-117) 367 U/L (45-117) Aspartate Amino Transf (AST/SGOT) 165 U/L (15-37) 124 U/L (15-37) Alanine Aminotransferase (ALT/SGPT) 93 U/L (12-78) Total Bilirubin 17.5 MG/DL (0.2-1.0) 15.5 MG/DL (0.2-1.0) Direct Bilirubin 14.5 MG/DL (0.0-0.2) Sodium Level 135 MEQ/L (136-145) Potassium Level 3.2 MEQ/L (3.5-5.1) 2.9 MEQ/L (3.5-5.1) Chloride Level 95 MEQ/L (98-107) Estimat Glomerular Filtration Rate 84 ML/MIN (>89) 88 ML/MIN (>89) Indirect Bilirubin 3.0 MG/DL (0.0-0.8) Ammonia 84 MCMOL/L (11-32) Lipase 961 U/L (73-393) 540 U/L (73-393) Urine Color DARK-YELLOW (YELLW/STRAW) Urine Bilirubin LARGE (NEG) Myelocytes 1 % (0-0) Target Cells 2+ (NORMAL) Total Protein 5.5 GM/DL (6.4-8.2) Magnesium Level 1.2 MG/DL (1.5-2.5) Total Iron Binding Capacity 139 MCG/DL (250-450) Percent Iron Saturation 94.5 % (20-50) Ferritin 3122 NG/ML (26-388) Test 07/06/17 15:25 07/07/17 09:29 07/08/17 13:00 White Blood Count 14.0 TH/MM3 (4.0-11.0) 16.4 TH/MM3 (4.0-11.0) Red Blood Count 3.38 MIL/MM3 (4.50-5.90) 3.36 MIL/MM3 (4.50-5.90) Hemoglobin 11.6 GM/DL (13.0-17.0) 11.7 GM/DL (13.0-17.0) Hematocrit 35.0 % (39.0-51.0) 35.2 % (39.0-51.0) Mean Corpuscular Volume 103.4 FL (80.0-100.0) 104.8 FL (80.0-100.0) Mean Corpuscular Hemoglobin 34.4 PG (27.0-34.0) 34.7 PG (27.0-34.0) Red Cell Distribution Width 17.6 % (11.6-17.2) 17.6 % (11.6-17.2) Band Neutrophils % 11 % (0-6) 7 % (0-6) Neutrophils # (Manual) 11.2 TH/MM3 (1.8-7.7) 13.1 TH/MM3 (1.8-7.7) Target Cells 2+ (NORMAL) 1+ (NORMAL) Stomatocytes 1+ (NORMAL) 1+ (NORMAL) Prothrombin Time 12.2 SEC (9.8-11.6) Blood Urea Nitrogen 6 MG/DL (7-18) Random Glucose 177 MG/DL (74-106) 174 MG/DL (74-106) Total Protein 6.3 GM/DL (6.4-8.2) Albumin 2.8 GM/DL (3.4-5.0) 2.6 GM/DL (3.4-5.0) Alkaline Phosphatase 358 U/L (45-117) 321 U/L (45-117) Aspartate Amino Transf (AST/SGOT) 109 U/L (15-37) 88 U/L (15-37) Total Bilirubin 16.3 MG/DL (0.2-1.0) 12.9 MG/DL (0.2-1.0) Sodium Level 135 MEQ/L (136-145) 135 MEQ/L (136-145) Potassium Level 3.3 MEQ/L (3.5-5.1) Estimat Glomerular Filtration Rate 84 ML/MIN (>89) 88 ML/MIN (>89) Neutrophils % (Manual) 72 % (16-70) Myelocytes 1 % (0-0) Blastocytes 1 % (0-0) Imaging Last Impressions Gall Bladder Ultrasound 07/06/17 0000 Signed Impressions: Service Date/Time: Thursday, July 06, 2017 07:14 - CONCLUSION: 1. Hepatomegaly with suspected hepatic steatosis. 2. Contracted gallbladder with sludge. Cory James MD Abdomen/Pelvis CT 07/06/17 0000 Signed Impressions: Service Date/Time: Thursday, July 06, 2017 11:01 - CONCLUSION: 1. Very prominent hepatomegaly with diffuse hepatic steatosis and minimal focal fatty sparing in the chanell hepatis region. 2. No biliary duct dilatation is seen. 3. The gallbladder is contracted. The gallbladder wall does appear thickened. Cory James MD Hospital Course Imaging on admission as above. Patient was admitted for close monitoring. Neurology was consult. They show was started on Plavix. Was seen by physical therapy, occupational therapy, speech therapy, and will go home with home health for PT, OT, ST. Discussed with patient that it'll be best to discontinue home Advil, try Tylenol arthritis instead. She'll follow-up with neurology as outpatient. For probably summary from most recent progress note, please see below. =====07/08/17 Alcoholic hepatitis. BR 12.9 from 16.3 improving. Continue steroids as per GI. -Discussed with GI. Cleared for discharge. Follow-up with GI as outpatient. Appreciate assistance. hypokelemia. Resolved after replacement. hypomagnesemia. 2.0. Stable. leukocytosis. Seem 0.4. Secondary to steroids. //Alcoholic hepatitis. -Heavy drinker. Last drink 4 days prior to admission. 07/06-Alkaline phosphatase 367, AST 124, ALT 68 consistent with alcoholism. However this has improved from admission -CT abdomen with hepatomegaly,'s diffuse hepatic steatosis, minimal local fatty sparing in the chanell hepatis region -Continue CIWA, seizure precautions, thiamine -GI consulted. Started on Solu-Medrol. Continue to monitor // Jaundice: secondary to liver dysfunction, hyperbilirubinemia, Total Bili 17 on admission. -Gallbladder nondistended on CT. -07/06. Bilirubin improved 15. CT abdomen reviewed without any gallbladder distention. Continue to monitor. // Elevated LFTs: mildly improved from previous labs 06/04/17, will monitor, repeat labs in am. //Pancreatitis: Lipase 961 on admission. -Analgesics/antiemetics as needed. -07/06. CT abdomen with no evidence of pancreatitis. Lipase improving 540. // Hypokalemia: K+ 2.9. Replaced. Recheck in a.m. //Hypomagnesemia. Magnesium 1.2. Replaced. // DVT Prophylaxis: SCD/Teds. Discharge Planning Discharge home today. Follow with GI as outpatient. Pt Condition on Discharge: Good Discharge Disposition: Discharge Home Discharge Time: > 30 minutes Discharge Instructions DIET: Follow Instructions for: Heart Healthy Diet Activities you can perform: Regular-No Restrictions Follow up Referrals: Gastroenterology - 2 Weeks @ [facility] PCP Follow-up - 1 Week New Orders: BASIC METABOLIC PROF - 1 Week HEPATIC FUNCTION COVARRUBIAS - 1 Week New Medications: Prednisone (Prednisone) 20 Mg Tab 40 MG PO DAILY for alcoholic hepatitis, #21 TAB Take 2 tablets daily for 7 days, then take 1 tablet daily. Follow-up with GI. Propranolol (Propranolol) 10 Mg Tab 10 MG PO Q12HR for prevent esophageal bleeding for 30 Days, #30 TAB Spironolactone (Aldactone) 50 Mg Tab 50 MG PO DAILY for liver, #30 TAB Thiamine HCl (Gnp Vitamin B-1) 100 Mg Tab 100 MG PO DAILY for vitamin, #30 TAB Continued Medications: Chlordiazepoxide HCl (Chlordiazepoxide HCl) 25 Mg Capsule 25 MG PO TID PRN for WITHDRAWAL, #6 Multiple Vitamin (Multi Vitamin Mens) 1 Tab Tab Discontinued Medications: [potassium vit] () Dixon Valencia MD Jul 08, 2017 15:35
[2017-07-08] MEDS ORDERED: LACT10SO PO (19:57)
[2017-07-15 07:53] LABS: MITOCHONDRIAL ABS LESS THAN 20.0 U (<=20.0)
[2017-07-15 16:05] LABS: HEREDITARY HEMOCHROM SPECIMEN WB Whole Blood
== END 2017-07-08 16:53 | disposition home or self-care (01) | DRG 433 ==
LOC: NEPD 17:24 → NEDA 21:46 → NEPFCDU 23:29 → OBSVTOIN 07-06 10:36
PROVIDERS: ADMIT Internal Medicine; ATTEND Internal Medicine
DX: K70.10 Alcoholic hepatitis without ascites (principal); E87.1 Hypo-osmolality and hyponatremia; K70.0 Alcoholic fatty liver; K72.90 Hepatic failure, unspecified without coma; E83.42 Hypomagnesemia; F41.9 Anxiety disorder, unspecified; I10 Essential (primary) hypertension; F32.9 Major depressive disorder, single episode, unspecified; E87.6 Hypokalemia; D53.9 Nutritional anemia, unspecified
CPT/HCPCS: 74177; 76705; 80048; 80053; 80074; 80076; 80307; 81001; 81256; 82103; 82105; 82140; 82390; 82728; 82948; 83520; 83540; 83550; 83690; 83735; 85007; 85027; 85610; 85730; 86038; 86255; G0378; J2060; J2920; J3475; J3480; J7040; J7512; Q9963; Q9967